=== PATIENT | female | born 1985 | race Caucasian/White ===

== ENCOUNTER → 2018-02-13 | Outpatient (CLI) | payer BC ==
[2018-02-13 11:49] LABS: HEMATOCRIT 44.9 % (36.0-47.0); HEMOGLOBIN 15.4 g/dl (12.0-15.5); MEAN CORPUSCULAR HEMOGLOBIN 30.7 pg (27.0-33.0); MEAN CORPUSCULAR HGB CONC 34.3 g/dl (32.0-36.5); MEAN CORPUSCULAR VOLUME 89.6 fl (80.0-96.0); PLATELET COUNT, AUTOMATED 394 10^3/uL (150-450); RED BLOOD COUNT 5.01 10^6/uL (4.00-5.40); RED CELL DISTRIBUTION WIDTH 12.3 % (11.5-14.5); WHITE BLOOD COUNT 12.9 10^3/uL (4.0-10.0)
[2018-02-13 12:07] LABS: ESTIMATED AVERAGE GLUCOSE 100 MG/DL (60-110); HEMOGLOBIN A1c 5.1 %
[2018-02-13 12:28] LABS: ALBUMIN 3.8 GM/DL (3.2-5.2); ALBUMIN/GLOBULIN RATIO 1.23 (1.00-1.93); ALKALINE PHOSPHATASE 78 U/L (45-117); ALT/SGPT 22 U/L (12-78); ANION GAP 7 MEQ/L (8-16); AST/SGOT 11 U/L (7-37); BILIRUBIN,TOTAL 0.5 MG/DL (0.2-1.0); BLOOD UREA NITROGEN 7 MG/DL (7-18); CALCIUM LEVEL 8.5 MG/DL (8.5-10.1); CARBON DIOXIDE LEVEL 26 MEQ/L (21-32); CHLORIDE LEVEL 109 MEQ/L (98-107); CHOLESTEROL LEVEL 202 MG/DL (<200); CHOLESTEROL RISK RATIO 5.941 (<5); CREATININE FOR GFR 0.68 MG/DL (0.55-1.30); GLOMERULAR FILTRATION RATE > 60.0 (>60); GLUCOSE, FASTING 84 MG/DL (70-100); HDL CHOLESTEROL 34 MG/DL (>40); IRON (FE) 60 UG/DL (50-170); NON-HDL-C 168 MG/DL; PERCENT SATURATION 19.3 % (13.2-45.0); SODIUM LEVEL 142 MEQ/L (136-145); THYROID STIMULATING HORMONE 0.716 uIU/ML (0.358-3.740); THYROXINE (T4) 9.6 UG/DL (4.5-12.0); TOTAL IRON BINDING CAPACITY 311 UG/DL (250-450); TOTAL PROTEIN 6.9 GM/DL (6.4-8.2); TRIGLYCERIDES LEVEL 260 MG/DL (<150)
[2018-02-13 12:47] LABS: TOTAL 25(OH) VITAMIN D 20.6 NG/ML (30.0-100.0)
[2018-02-13 12:48] LABS: TOTAL T3 137.3 NG/DL (60.0-181.0)
[2018-02-13 12:49] LABS: VITAMIN B12 LEVEL 447 PG/ML (247-911)
== END ==
LOC: M LAB 10:53
DX: J44.9 Chronic obstructive pulmonary disease, unspecified (principal); R53.83 Other fatigue; E03.9 Hypothyroidism, unspecified
CPT/HCPCS: 71046

== ENCOUNTER → 2018-02-13 | Outpatient (CLI) | payer BC | LOC: M RAD 11:08 | DX: S92.512A Displaced fracture of proximal phalanx of left lesser toe(s), initial encounter for closed fracture (principal); X58.XXXA Exposure to other specified factors, initial encounter; Y92.9 Unspecified place or not applicable | CPT/HCPCS: 73630 ==

== ENCOUNTER 2018-02-18 23:16 | Observation (INO) | payer BC ==
[2018-02-18] MEDS ORDERED: ONDANSETRON 4MG/2ML VIAL (J2405) IV (23:45)
[2018-02-18] MEDS ORDERED: MORPHINE 4 MG/ML 1ML VIAL/SYRINGE (J2270) IV (23:45)
[2018-02-18] MEDS ORDERED: ACETAMINOPHEN TAB 650MG DOSE (2X325MG) PO (23:45)
[2018-02-19] MEDS: metroNIDAZOLE 500 MG in APPROPRIATE DILUENT 1 EA IV ×3 (01:42→18:01)
[2018-02-19] MEDS: LR 1,000 ML IV ×3 (01:42→18:02)
[2018-02-19] MEDS: NORCO, ANEXSIA 5/325MG TABLET (HYDROcodone/ACETAMINOPHEN) PO ×2 (02:21→15:23)
[2018-02-19] MEDS: CIPROFLOXACIN 400 MG in APPROPRIATE DILUENT 1 EA IV ×2 (03:00→12:16)
[2018-02-19 05:31] LABS: HEMATOCRIT 40.8 % (36.0-47.0); HEMOGLOBIN 14.1 g/dl (12.0-15.5); MEAN CORPUSCULAR HEMOGLOBIN 30.7 pg (27.0-33.0); MEAN CORPUSCULAR HGB CONC 34.6 g/dl (32.0-36.5); MEAN CORPUSCULAR VOLUME 88.7 fl (80.0-96.0); PLATELET COUNT, AUTOMATED 312 10^3/uL (150-450); RED CELL DISTRIBUTION WIDTH 12.4 % (11.5-14.5); WHITE BLOOD COUNT 15.9 10^3/uL (4.0-10.0)
[2018-02-19 05:51] LABS: ANION GAP 5 MEQ/L (8-16); BLOOD UREA NITROGEN 6 MG/DL (7-18); CALCIUM LEVEL 8.4 MG/DL (8.5-10.1); CARBON DIOXIDE LEVEL 29 MEQ/L (21-32); CHLORIDE LEVEL 106 MEQ/L (98-107); CREATININE FOR GFR 0.77 MG/DL (0.55-1.30); GLOMERULAR FILTRATION RATE > 60.0 (>60); GLUCOSE, FASTING 98 MG/DL (70-100); SODIUM LEVEL 140 MEQ/L (136-145)
[2018-02-19] MEDS: HEPARIN SOD (PORCINE) 5000 UNITS/ML VIAL SC ×3 (05:52→21:22)
[2018-02-19 05:59] LABS: POTASSIUM SERUM 3.3 MEQ/L (3.5-5.1)
[2018-02-19] MEDS ORDERED: MIDAZOLAM INJ 2 MG/2 ML VIAL (J2250) As Ordered (06:41)
[2018-02-19] MEDS ORDERED: dexameTHASONE 4 MG/ML 1ML VIAL (J1100) As Ordered (06:41)
[2018-02-19] MEDS ORDERED: PROPOFOL 200 MG/20 ML VIAL As Ordered (06:41)
[2018-02-19] MEDS ORDERED: PHENYLephrine HCL 500 MCG/5 ML (100MCG/ML) SYRINGE (J2370) As Ordered (06:41)
[2018-02-19] MEDS ORDERED: ONDANSETRON 4MG/2ML VIAL (J2405) As Ordered (06:41)
[2018-02-19] MEDS ORDERED: LIDOCAINE 2% INJ 100 MG/5 ML SDV (FOR ANES.) As Ordered (06:41)
[2018-02-19] MEDS ORDERED: fentaNYL 100 MCG/2 ML INJECTION (J3010) As Ordered (06:41)
[2018-02-19] MEDS ORDERED: ROCURONIUM BROMIDE 50 MG/5 ML VIAL As Ordered (06:41)
[2018-02-19] MEDS ORDERED: GLYCOPYRROLATE INJ 0.2 MG/ML 2 ML VIAL As Ordered (06:57)
[2018-02-19] MEDS ORDERED: NEOSTIGMINE 10 MG/10 ML VIAL (J2710) As Ordered (06:57)
[2018-02-19] MEDS: BUPIVACAINE/EPIN 0.25% 30 ML VIAL As Ordered (06:59)
[2018-02-19] MEDS ORDERED: CYCLOBENZAPRINE 10 MG TAB PO (07:15)
[2018-02-19] MEDS: PERCOCET 5MG/325MG TAB PO (07:20)
[2018-02-19] MEDS ORDERED: PERCOCET 5MG/325MG TAB As Ordered (07:27)
[2018-02-19] MEDS ORDERED: ONDANSETRON 4MG/2ML VIAL (J2405) IV (07:45)
[2018-02-19] MEDS ORDERED: LR 1,000 ML IV (07:45)
[2018-02-19] MEDS ORDERED: MORPHINE 10 MG/ML 1ML VIAL (J2270) IV (07:45)
[2018-02-19] MEDS ORDERED: fentaNYL 100 MCG/2 ML INJECTION (J3010) IV (07:45)
[2018-02-19] MEDS: PANTOPRAZOLE 40MG TAB (PROTONIX) PO (08:49)
[2018-02-19] MEDS: PREGABALIN 50 MG CAP (LYRICA) PO ×2 (08:49→21:22)
[2018-02-19] MEDS: SENOKOT S TAB PO ×2 (08:49→21:21)
[2018-02-19] MEDS: NICOTINE 14 MG/24 HR TRANSDERMAL TD (08:50)
[2018-02-19] MEDS: KETOROLAC 30 MG/ML VIAL (J1885) IV ×2 (10:42→20:23)
[2018-02-19] MEDS: SUCRALFATE 1 GM TAB PO ×3 (11:10→21:21)
[2018-02-19] MEDS: ALBUTEROL 90 MCG/ACT 8GM HFA INHALER INH (16:55)
[2018-02-19] MEDS: ASCORBIC ACID 500 MG TAB PO (21:21)
[2018-02-19] MEDS: predniSONE 20 MG TAB PO (21:21)
[2018-02-19] MEDS: VITAMIN D 1,000 INTERNATIONAL UNITS TABLET PO (21:21)
[2018-02-19] MEDS: MULTIVITAMINS/MINERALS THERAP 1 TAB PO (21:21)
[2018-02-20] MEDS: CIPROFLOXACIN 400 MG in APPROPRIATE DILUENT 1 EA IV (01:49)
[2018-02-20] MEDS: NORCO, ANEXSIA 5/325MG TABLET (HYDROcodone/ACETAMINOPHEN) PO (02:06)
[2018-02-20] MEDS: metroNIDAZOLE 500 MG in APPROPRIATE DILUENT 1 EA IV (03:04)
[2018-02-20] MEDS: LR 1,000 ML IV (03:12)
[2018-02-20] MEDS: ALBUTEROL 90 MCG/ACT 8GM HFA INHALER INH (06:02)
[2018-02-20] MEDS: HEPARIN SOD (PORCINE) 5000 UNITS/ML VIAL SC (06:13)
[2018-02-20 07:37] LABS: HEMATOCRIT 37.2 % (36.0-47.0); HEMOGLOBIN 12.8 g/dl (12.0-15.5); MEAN CORPUSCULAR HGB CONC 34.4 g/dl (32.0-36.5); MEAN CORPUSCULAR VOLUME 90.1 fl (80.0-96.0); PLATELET COUNT, AUTOMATED 309 10^3/uL (150-450); RED BLOOD COUNT 4.13 10^6/uL (4.00-5.40); RED CELL DISTRIBUTION WIDTH 12.6 % (11.5-14.5); WHITE BLOOD COUNT 11.9 10^3/uL (4.0-10.0)
[2018-02-20 08:08] LABS: ANION GAP 5 MEQ/L (8-16); BLOOD UREA NITROGEN 8 MG/DL (7-18); CALCIUM LEVEL 8.4 MG/DL (8.5-10.1); CARBON DIOXIDE LEVEL 28 MEQ/L (21-32); CHLORIDE LEVEL 110 MEQ/L (98-107); CREATININE FOR GFR 0.57 MG/DL (0.55-1.30); GLOMERULAR FILTRATION RATE > 60.0 (>60); GLUCOSE, FASTING 123 MG/DL (70-100); POTASSIUM SERUM 3.8 MEQ/L (3.5-5.1); SODIUM LEVEL 143 MEQ/L (136-145)
[2018-02-20] MEDS: SENOKOT S TAB PO (09:13)
[2018-02-20] MEDS: SUCRALFATE 1 GM TAB PO (09:13)
[2018-02-20] MEDS: predniSONE 20 MG TAB PO (09:13)
[2018-02-20] MEDS: PREGABALIN 50 MG CAP (LYRICA) PO (09:14)
[2018-02-20] MEDS: PANTOPRAZOLE 40MG TAB (PROTONIX) PO (09:14)
[2018-02-20] MEDS: KETOROLAC 30 MG/ML VIAL (J1885) IV (09:20)
== END 2018-02-20 10:28 | disposition home or self-care (01) ==
LOC: M ED 23:16 → M ED INP 23:17 → M PED 02-19 01:11
DX: K35.89 Other acute appendicitis (principal); M79.7 Fibromyalgia; K21.9 Gastro-esophageal reflux disease without esophagitis; Q79.8 Other congenital malformations of musculoskeletal system; F17.210 Nicotine dependence, cigarettes, uncomplicated; Z79.899 Other long term (current) drug therapy; Z88.0 Allergy status to penicillin
CPT/HCPCS: 44970

== ENCOUNTER → 2018-02-18 | Outpatient (REF) | payer BC | LOC: M LAB REF 12:08 | DX: R05 Cough (principal); R50.9 Fever, unspecified | CPT/HCPCS: 87086 ==

== ENCOUNTER → 2018-02-23 | Outpatient (CLI) | payer BC | LOC: M EKG 09:52 | DX: R00.1 Bradycardia, unspecified (principal) | CPT/HCPCS: 93005 ==

== ENCOUNTER → 2018-10-17 | Outpatient (CLI) | payer OTHER ==
[~2018-10-17] MED LIST: CYCL10TA PO; DOXY100C PO; NORCOTAB PO; PRED20TA PO; PREG50CA PO; PROAAER10 INH; PROT1TAB2 PO; SUCR1TAB56 PO; ULTIMATE FLORA PO; VITA100066 PO; VITA500T PO; VITMTA PO; [UNRECOGNIZED DRUG - OTHER] PO
--- NOTE | 2018-10-21 10:36 | SLEEPCENT ---
DATE OF PROCEDURE: 10/17/2018 ORDERED BY: Sean Lala Nocturnal polysomnography was performed for the titration of pressure therapy in this patient with a clinical diagnosis of obstructive sleep apnea syndrome confirmed by home testing revealing a respiratory event index of 10.4. For testing, the patient was fit with a ResMed AirFit F20 full face mask of medium size and 4 cm of water pressure were applied to the circuit and the lights were extinguished. 8 hours and 6 minutes of data were reviewed. There were 446 minutes of sleep identified. Sleep latency was prolonged at 25.5 minutes. Rapid eye movement (REM) latency was short at 43.5 minutes. Sleep architecture was good with 5 REM cycles. Overall sleep efficiency was 93%. The electrocardiogram showed a sinus rhythm with an average heart rate of 58 beats per minute. Electroencephalogram (EEG) showed normal waveforms for awake and sleep with some coarsening in background. No focal events were identified. Respiratory events were best palliated with C-PAP at a pressure of +5. Some limb activity was seen late in the study, but arousals were only 2.4 per hour. IMPRESSION: Obstructive sleep apnea syndrome (G47.33) RECOMMENDATION: Nightly use of pressure therapy at 5 cm of water.
== END ==
LOC: M SLEEP 19:50
PROVIDERS: ATTEND Physician Assistant
DX: G47.33 Obstructive sleep apnea (adult) (pediatric) (principal)

== ENCOUNTER → 2018-11-03 | Outpatient (CLI) | payer OTHER ==
[~2018-11-03] MED LIST changes: +METHACHOLINE KIT (J7674) INH ONE
--- NOTE | 2018-11-03 15:15 | PFTRPT ---
Height: 68.00 Inches Weight: 210.00 Lbs BSA: 2.09 Diagnosis: R06.00 DATE OF PROCEDURE: 11/03/2018 ORDERED BY: Kasi Lala INTERPRETATION: Study of excellent technical quality. Under protocol, methacholine was administered. At a dose of 2.5 mg or 13.875 CDUs, a 28% decline in the FEV1 was noted. PC of 0.98 is significant. Flow rates did return to baseline post bronchodilator administration. IMPRESSION: Positive methacholine challenge study. MTDD
== END ==
LOC: M CARPUL 08:10
PROVIDERS: ATTEND Physician Assistant
DX: R06.00 Dyspnea, unspecified (principal)

== ENCOUNTER 2019-10-15 18:27 | Emergency (ER) | payer OTHER ==
[~2019-10-15] VITALS: Ht 172.7 cm; Wt 88.0 kg
[~2019-10-15 18:27] MED LIST changes: +HYDR-3715 PO; -METHACHOLINE KIT (J7674) INH ONE; -NORCOTAB PO
[2019-10-15] MEDS ORDERED: CIPR500T3 (19:31)
[2019-10-15] MEDS ORDERED: ACET1TAB16 (19:31)
[2019-10-15] MEDS ORDERED: VENL150C43 (19:31)
[2019-10-15] MEDS ORDERED: NS 1,000 ML IV ONE (21:00)
[2019-10-15] MEDS ORDERED: ONDANSETRON 4MG/2ML VIAL (J2405) IV ONE (21:00)
[2019-10-15] MEDS ORDERED: KETOROLAC 30 MG/ML VIAL (J1885) IV ONE (21:00)
[2019-10-15] MEDS ORDERED: methylPREDNISolone INJ 125 MG/2 ML VIAL (J2930) IV ONE (21:00)
--- NOTE | 2019-10-15 21:20 | REPVR ---
PROCEDURE INFORMATION: Exam: CT Head Without Contrast Exam date and time: 10/15/2019 8:58 PM Age: 34 years old Clinical indication: Pain; Headache; Additional info: Worst headache of life TECHNIQUE: Imaging protocol: Computed tomography of the head without contrast. Radiation optimization: All CT scans at this facility use at least one of these dose optimization techniques: automated exposure control; mA and/or kV adjustment per patient size (includes targeted exams where dose is matched to clinical indication); or iterative reconstruction. COMPARISON: No relevant prior studies available. FINDINGS: Brain: Normal. No hemorrhage. Unremarkable white matter. No mass effect. Ventricles: Normal. No ventriculomegaly. Bones/joints: Unremarkable. No acute fracture. Sinuses: Visualized sinuses are unremarkable. No fluid levels. Mastoid air cells: Visualized mastoid air cells are well aerated. Soft tissues: Unremarkable. IMPRESSION: No acute intracranial abnormality. Electronically signed by: Mando Baker On 10/15/2019 21:22:00 PM
[2019-10-15 22:00] LABS: BASO # 0.1 10^3/uL (0.0-0.2); BASO % 0.6 % (0.0-1.0); EOS # 0.3 10^3/uL (0.0-0.5); EOS % 3.3 % (0.0-3.0); HEMATOCRIT 49.1 % (36.0-47.0); HEMOGLOBIN 16.1 g/dl (12.0-15.5); LYMPH # 3.5 10^3/uL (1.5-5.0); MEAN CORPUSCULAR HEMOGLOBIN 29.8 pg (27.0-33.0); MEAN CORPUSCULAR HGB CONC 32.8 g/dl (32.0-36.5); MEAN CORPUSCULAR VOLUME 90.8 fl (80.0-96.0); MONO # 0.7 10^3/uL (0.0-0.8); NEUTROPHILS # 5.2 10^3/uL (1.5-8.5); NEUTROPHILS % 52.3 % (36.0-66.0); PLATELET COUNT, AUTOMATED 403 10^3/uL (150-450); RED BLOOD COUNT 5.41 10^6/uL (4.00-5.40); WHITE BLOOD COUNT 9.8 10^3/uL (4.0-10.0)
[2019-10-15 22:25] LABS: BLOOD UREA NITROGEN 6 MG/DL (7-18); CARBON DIOXIDE LEVEL 27 MEQ/L (21-32); CHLORIDE LEVEL 106 MEQ/L (98-107); CREATININE FOR GFR 0.58 MG/DL (0.55-1.30); GLOMERULAR FILTRATION RATE > 60.0 (>60); GLUCOSE, FASTING 75 MG/DL (70-100); POTASSIUM SERUM 4.7 MEQ/L (3.5-5.1); SODIUM LEVEL 142 MEQ/L (136-145)
[2019-10-15] MEDS ORDERED: MORPHINE 2 MG/ML 1ML VIAL (J2270) IV ONE (22:30)
[2019-10-16] MEDS ORDERED: ONDA4TAB6 PO (00:18)
[2019-10-16 00:45] VITALS: BP 110/69
== END 2019-10-16 00:30 | disposition home or self-care (01) ==
LOC: M ED 18:27
DX: R51 Headache (principal); F17.200 Nicotine dependence, unspecified, uncomplicated; Z79.51 Long term (current) use of inhaled steroids; Z79.899 Other long term (current) drug therapy; Z88.0 Allergy status to penicillin; Z91.018 Allergy to other foods; Z98.82 Breast implant status
CPT/HCPCS: 70450; 80048; 85025; 96361; 96374; 96375; 99284; J2270; J2405; J2930

== ENCOUNTER → 2020-06-07 | Outpatient (CLI) | payer OTHER ==
[~2020-06-07] MED LIST changes: +ACET1TAB16; +CIPR500T3; +CYCL-707 PO; -CYCL10TA PO; +ONDA4TAB6 PO; +VENL150C43; +VITA-243 PO; -VITA500T PO
[2020-06-07 09:47] LABS: HEMATOCRIT 45.9 % (36.0-47.0); MEAN CORPUSCULAR HEMOGLOBIN 31.1 pg (27.0-33.0); MEAN CORPUSCULAR HGB CONC 32.7 g/dl (32.0-36.5); MEAN CORPUSCULAR VOLUME 95.2 fl (80.0-96.0); PLATELET COUNT, AUTOMATED 402 10^3/uL (150-450); RED BLOOD COUNT 4.82 10^6/uL (4.00-5.40); WHITE BLOOD COUNT 9.1 10^3/uL (4.0-10.0)
[2020-06-07 10:15] LABS: ALBUMIN 3.6 GM/DL (3.2-5.2); ALT/SGPT 16 U/L (12-78); BILIRUBIN,TOTAL 0.5 MG/DL (0.2-1.0); BLOOD UREA NITROGEN 7 MG/DL (7-18); CALCIUM LEVEL 9.1 MG/DL (8.5-10.1); CARBON DIOXIDE LEVEL 30 MEQ/L (21-32); CHLORIDE LEVEL 106 MEQ/L (98-107); CHOLESTEROL LEVEL 186 MG/DL (<200); CHOLESTEROL RISK RATIO 3.509 (<5); CREATININE FOR GFR 0.58 MG/DL (0.55-1.30); GLOMERULAR FILTRATION RATE > 60.0 (>60); GLUCOSE, FASTING 79 MG/DL (70-100); HDL CHOLESTEROL 53 MG/DL (>40); LDL CHOLESTEROL 118 MG/DL (<100); NON-HDL-C 133 MG/DL; POTASSIUM SERUM 4.9 MEQ/L (3.5-5.1); SODIUM LEVEL 140 MEQ/L (136-145); TOTAL PROTEIN 6.5 GM/DL (6.4-8.2); TRIGLYCERIDES LEVEL 75 MG/DL (<150)
[2020-06-07 10:16] LABS: IRON (FE) 143 UG/DL (50-170); PERCENT SATURATION 57.2 % (13.2-45.0); THYROID STIMULATING HORMONE 0.647 uIU/ML (0.358-3.740); THYROXINE (T4) 8.4 UG/DL (4.5-12.0); TOTAL IRON BINDING CAPACITY 250 UG/DL (250-450)
[2020-06-07 10:17] LABS: TOTAL 25(OH) VITAMIN D 45.2 NG/ML (30.0-100.0); TOTAL T3 109.4 NG/DL (60.0-181.0)
[2020-06-07 10:45] LABS: HEMOGLOBIN A1c 4.8 %
== END ==
LOC: M WUC 08:02
PROVIDERS: ATTEND Family Medicine
DX: D64.9 Anemia, unspecified (principal); R53.83 Other fatigue; E03.9 Hypothyroidism, unspecified

== ENCOUNTER → 2020-08-09 | Outpatient (REF) | payer OTHER | LOC: M LAB REF 12:58 | PROVIDERS: ATTEND Family Medicine | DX: Z51.81 Encounter for therapeutic drug level monitoring (principal); Z79.899 Other long term (current) drug therapy ==

== ENCOUNTER → 2020-10-19 | Outpatient (CLI) | payer OTHER ==
--- NOTE | 2020-10-19 09:02 | REP ---
INDICATION: RT BREAST LUMP,IMPLANTS. Palpable lump in the right breast present times 5-7 days 1-3 o'clock position medial aspect right breast. COMPARISON: None. TECHNIQUE: Targeted right breast sonography. FINDINGS: Scanning in the region of the right medial breast 1 to 3 o'clock position demonstrates smooth of implant margins. Overlying breast tissue is mildly heterogeneous. No cyst, mass, or acoustic shadowing is seen. No abnormality is seen. IMPRESSION: BI-RADS category 2 benign findings. Recommend clinical follow-up. <Electronically signed by Jose Ramon Marshall > 10/19/20 [id number]
== END ==
LOC: M WHC 07:17
PROVIDERS: ATTEND Family Medicine
DX: N63.12 Unspecified lump in the right breast, upper inner quadrant (principal); Z98.82 Breast implant status

== ENCOUNTER → 2020-11-17 | Outpatient (CLI) | payer OTHER ==
--- NOTE | 2020-11-20 14:46 | SLEEPHOME ---
DIAGNOSTIC HOME SLEEP STUDY DATE: 11/17/2020 ORDERED BY: ELIAS Sandra Diagnostic home sleep testing was performed due to concern for the obstructive sleep apnea syndrome in this patient with a prior history of same, who has effective weight loss. For testing, a nocturnal T3 respiratory monitoring device was used. Continuous record was made of pulse, oxygen saturation, air flow, chest and abdominal strain, and body position. 9 hours and 59 minutes of data were reviewed. There were 7 hours and 34 minutes marked as time in bed. During the interval marked time in bed, there were 52 respiratory events identified of 10 seconds in duration or greater. The events were obstructive and not posturally related. Baseline pulse rate 64. Pulse rate range 32 to 100. Baseline saturation was 93%. Saturations fell to 56%. Testing was performed in both the supine and non-supine positions. IMPRESSION: Abnormal home sleep testing, with repetitive respiratory events and oxygen desaturations to 56% with a respiratory event index of 6.9, is consistent with persistence of obstructive sleep apnea syndrome. RECOMMENDATION: The patient should pursue further treatment for obstructive sleep apnea syndrome.
== END ==
LOC: M SLEEP HO 11:35
PROVIDERS: ATTEND Physician Assistant
DX: G47.33 Obstructive sleep apnea (adult) (pediatric) (principal)

== ENCOUNTER → 2020-11-24 | Outpatient (REF) | payer OTHER | LOC: M SFHCWAGY 10:22 | PROVIDERS: ATTEND Nurse Practitioner Family | DX: Z12.4 Encounter for screening for malignant neoplasm of cervix (principal); Z77.9 Other contact with and (suspected) exposures hazardous to health | CPT/HCPCS: 87624; G0123 ==

== ENCOUNTER → 2020-12-22 | Outpatient (CLI) | payer OTHER ==
[~2020-12-22] MED LIST changes: +PROHANCE 279.3MG/ML 15ML VIAL As Ordered ONE
--- NOTE | 2020-12-22 16:56 | REP ---
INDICATION: PAIN FROM BREAST IMPLANT, LUMP RT BREAST. COMPARISON: Ultrasound 10/19/2020. TECHNIQUE: Three Arlin MRI imaging was performed with a dedicated breast coil. Axial, coronal, and sagittal T1 and T2 weighted scans were obtained with and without fat saturation in the usual fashion. The study includes dynamically acquired post gadolinium-enhanced imaging with image subtraction. Maximum intensity projection and multi planar reformation imaging is included as well. This study is interpreted with the aid of AppiaD, an FDA approved computer aided detection (CAD) software program, on a dedicated breast MRI workstation. The gadolinium enhancement dose is 14 mL of intravenous ProHance. FINDINGS: Bilateral silicone implants are present. There is no evidence of intracapsular or extracapsular rupture. Mild reactive fluid surrounds the left breast implant. This is likely secondary to an inflammatory response. Within the breast tissue there is mild scattered fibroglandular tissue present. This is symmetrical. No significant cystic change is seen. There is no axillary adenopathy. There is very mild background parenchymal enhancement. There is no suspicious enhancing mass or morphologic abnormality. IMPRESSION: BI-RADS category 2 benign bilateral breast MRI. Bilateral silicone breast implants are intact with no evidence of intracapsular or extracapsular rupture. There is mild fluid surrounding the left breast implant likely inflammatory response to the implant. There is no suspicious enhancing mass or morphologic abnormality. <Electronically signed by Gregorio Hassan > 12/22/20 [id number]
== END ==
LOC: M RAD 12:28
PROVIDERS: ATTEND Nurse Practitioner Family
DX: N63.10 Unspecified lump in the right breast, unspecified quadrant (principal); T85.848A Pain due to other internal prosthetic devices, implants and grafts, initial encounter
CPT/HCPCS: A9576; C8908

== ENCOUNTER → 2021-01-09 | Outpatient (CLI) | payer OTHER ==
[~2021-01-09] MED LIST changes: -PROHANCE 279.3MG/ML 15ML VIAL As Ordered ONE
--- NOTE | 2021-01-09 15:08 | REP ---
INDICATION: Possible retro areolar 1.3 cm sized oval structure seen on an MRI. Patient has no complaints of a palpable breast abnormality or focal breast pain. COMPARISON: There are no prior mammograms for review. TECHNIQUE: Cc and MLO views of the left breast using both 2D and 3D modalities and both with Kerri and non Kerri views obtained. FINDINGS: The breast parenchyma is heterogenously dense to such a degree that the sensitivity of the mammogram a detecting cancers decreased. There are no masses. There is no internal architectural distortion. There are no suspicious calcifications. There is no skin thickening or nipple retraction. The Volpara volumetric breast density pattern is D . IMPRESSION: BIRADS/ACR category 2 negative mammogram. This patient's Tyrer-Cuzick lifetime breast cancer risk assessment score is 13.1%. This mammogram was interpreted with the aid of an FDA-approved computer-aided detection system. The patient states she had a clinical breast exam in . The patient letter being requested is M2 RECOMMENDATION: No further imaging is warranted. Ultrasonography could be performed if requested. <Electronically signed by Augusto Chauhan > 01/09/21 [id number]
--- NOTE | 2021-01-09 16:16 | REP ---
INDICATION: R22.1 LUMP IN NECK. COMPARISON: Palpable mass on the right, correlate with left side. Please do thyroid ultrasound.. TECHNIQUE: Scanning is performed in the area the palpable lump on the right side. In addition bilateral thyroid sonography is carried out. FINDINGS: The thyroid isthmus is 0.6 cm in thickness. A multinodular goiter is observed. Right lobe dimensions are 6.0 x 2.7 x 1.7 cm. Left lobe dimensions are 6.5 x 1.9 x 1.8 cm. There are multiple hypoechoic thyroid nodules bilaterally. There is a fairly homogeneous solid nodule in the right lobe measuring 2.0 x 1.3 x 1.6 cm. The right lobe also contains a slightly complex hyperechoic nodule 1.8 x 1.1 x 1.4 cm and a complex nodule 1.3 x 1.1 x 1.0 cm. In the left lobe, there are complex nodules. The largest on the left measures 2.7 x 1.3 x 2.2 cm. There is a 1.5 x 1.1 x 1.3 and 1.0 x 0.7 x 0.9 cm nodule. There is a partially cystic nodule in the isthmus measuring 1.0 x 0.5 x 0.9 cm. None of these appear more suspicious than any other. Comparison scanning bilaterally in the lateral aspect of the neck is performed. On the right in the area of palpable abnormality there are 2 cervical lymph nodes. These have preserved fatty hilar regions. They measure 0.7 x 0.5 x 0.5 cm and 1.3 x 1.0 x 0.6 cm. On the left there is a similar sized lymph node measuring 1.8 x 0.7 x 1.1 cm. The largest lymph node on each side appears slightly hypertrophied with cortical margin of 3 mm in the right cervical lymph noted 4 mm in the left. IMPRESSION: Nonspecific findings. Borderline lymph nodes noted in the anterior cervical chain bilaterally. There are multiple thyroid nodules. Consideration could be given to ultrasound-guided fine needle aspiration of the largest solid nodule in each lobe of the thyroid and the largest lymph node in each side of the neck.. <Electronically signed by Jose Ramon Marshall > 01/09/21 [id number]
== END ==
LOC: M WHC 13:30
PROVIDERS: ATTEND Surgery
DX: E04.1 Nontoxic single thyroid nodule (principal); R22.1 Localized swelling, mass and lump, neck; N63.42 Unspecified lump in left breast, subareolar
CPT/HCPCS: 76536; 77065; G0279

== ENCOUNTER → 2021-01-29 | Outpatient (CLI) | payer OTHER ==
--- NOTE | 2021-01-29 13:05 | REP ---
INDICATION: ABNORMAL BREAST MRI L BREAST. COMPARISON: Comparison MRI study is from December 22, 2020.. TECHNIQUE: Left breast sonography is performed for evaluation of implant margins, Liyah implant effusion, and MRI findings showing a cylindrical 3 cm structure at the anterior margin of the left implant. FINDINGS: Implant margins are fairly smooth. There is a small Liyah implant effusion surrounding the left breast implant corresponding with the MR study. For between 7-11 o'clock in the left breast along the margin of the augmentation implant, the fluid contains complex hypoechoic material showing independent motion. Anteriorly, in the retroareolar region, just superficial to the implant margin, there is a 3.1 x 0.7 x 0.9 cm Maribel coal echogenic structure without observable Doppler flow. This indents the superficial margin of the implant and corresponds to the MR findings. There is a small quantity of fluid surrounding this. This is of uncertain significance. Visualized breast parenchyma is unremarkable. No other finding. IMPRESSION: 1. There is a small Liyah implant effusion noted on the left. There is some echogenic debris or cellular material in a portion of the effusion medially showing independent motion on ultrasound. 2. There is a cylindrical 3.0 by 0.7 x 0.9 cm mass indenting the superficial margin of the left implant in the retroareolar region. This is surrounded by fluid and corresponds with the MR findings. This is of uncertain significance. No Doppler flow is seen within this lesion. Fat necrosis, postoperative granulation tissue versus other etiologies. 3. BI-RADS category is felt to be best assigned as category 4 suspicious findings. Consider ultrasound-guided Liyah implant effusion aspiration and ultrasound-guided needle biopsy of the cylindrical soft tissue structure. <Electronically signed by Jose Ramon Marshall > 01/29/21 [id number]
== END ==
LOC: M WHC 08:28
PROVIDERS: ATTEND Surgery
DX: R92.8 Other abnormal and inconclusive findings on diagnostic imaging of breast (principal); N63.20 Unspecified lump in the left breast, unspecified quadrant

== ENCOUNTER → 2021-02-08 | Outpatient (CLI) | payer OTHER ==
[~2021-02-08] MED LIST changes: +TRAM50TA2 PO; +XANA0.25 PO
[2021-02-08 14:47] VITALS: BP 112/80
--- NOTE | 2021-02-09 07:49 | REP ---
INDICATION: ABN LEFT BREAST MRI/US GUIDED BX/L ASPIRATION. COMPARISON: None. TECHNIQUE: The procedure was performed under the direct supervision of Dr. Marshall. Patient has a history of a small Liyah-implant effusion with echogenic debris or cellular material in a portion of the effusion medially showing independent motion are ultrasound. There is a cylindrical 3 x 0.7 x 0.9 cm mass indenting superficial margin of the left implant in the retro-areolar region. These were seen on a previous ultrasound dated 01/29/2021. The risks and benefits of the procedure were explained to the patient and informed consent was obtained. The implant effusion and mass were localized using ultrasound guidance. The skin was prepped and draped in a sterile fashion. The effusion in the medial portion of the breast was addressed 1st. 1% lidocaine was used as a local anesthetic. Using ultrasound guidance an 18 gauge needle was inserted and advanced into the effusion. However, only a few drops of yellowish colored fluid was able to be withdrawn. The retro-areolar mass was then addressed. The left breast mass was localized using ultrasound guidance. The skin was prepped and draped in a sterile fashion. 1% Xylocaine was used as a local anesthetic. Using ultrasound guidance a 17/18 gauge coaxial needle was inserted and6 core biopsy samples were obtained. The patient tolerated the procedure well and there were no immediate complications. After the appropriate amount of monitored convalescence, the patient was discharged from the department. FINDINGS: As above. IMPRESSION: Ultrasound-guided left breast biopsy. <Electronically signed by Stanislaw Meza > 02/08/21 [id number] <Electronically signed by Jose Ramon Marshall > 02/09/21 [id number]
== END ==
LOC: M WHCPRO 06:38
PROVIDERS: ATTEND Surgery
DX: D24.2 Benign neoplasm of left breast (principal)

== ENCOUNTER → 2021-02-28 | Outpatient (CLI) | payer OTHER ==
[~2021-02-28] MED LIST changes: +ISOVUE-370 76% 100ML VIAL As Ordered ONE
--- NOTE | 2021-03-01 08:44 | REPVR ---
PROCEDURE INFORMATION: Exam: CT Neck With Contrast Exam date and time: 02/28/2021 6:03 PM Age: 35 years old Clinical indication: Other: RT neck lymphnode, R/O cervical lymphadenopathy TECHNIQUE: Imaging protocol: Computed tomography images of the neck with contrast. Radiation optimization: All CT scans at this facility use at least one of these dose optimization techniques: automated exposure control; mA and/or kV adjustment per patient size (includes targeted exams where dose is matched to clinical indication); or iterative reconstruction. Contrast material: ISOVUE 370; Contrast volume: 75 ml; Contrast route: INTRAVENOUS (IV); COMPARISON: SOFT TISSUE H/N THYROID US 01/09/2021 3:00 PM FINDINGS: Nasopharynx: Unremarkable. Oropharynx: Unremarkable. No significant tonsillar enlargement. Hypopharynx: Unremarkable. Larynx: Unremarkable. Normal epiglottis. Retropharyngeal space: Unremarkable. Submandibular/Parotid glands: Normal. Glands are normal in size. Thyroid: The thyroid gland is diffusely lobulated and nodular. Dominant right thyroid lobe nodule measures up to 1.7 cm in diameter. There is a 1.8 cm isthmus nodule. This has been previously evaluated sonographically. Lymph nodes: There are small multilevel cervical lymph nodes. The site of palpable abnormality appears to correlate with an 8 mm right level 2 lymph node. There is no worrisome lymphadenopathy. Trachea: Visualized trachea is unremarkable. Lungs: Unremarkable as visualized. Bones/joints: Unremarkable. No acute fracture. Soft tissues: Unremarkable. No significant soft tissue swelling. IMPRESSION: No worrisome cervical lymphadenopathy. COMMENTS: Consistent with the [employer]'s Incidental Findings Committee white paper (J Am Luke Radiol 2015): In patients aged 35 years and older with an incidental thyroid nodule equal to or greater than 1.[address], MRI or extrathyroidal US, further evaluation with dedicated thyroid US is recommended for patients with normal life expectancy and without comorbidities. For smaller nodules without suspicious features, no further evaluation or follow up is recommended. Electronically signed by: Ronna Godoy On 03/01/2021 08:44:10 AM
== END ==
LOC: M RAD 17:47
PROVIDERS: ATTEND Otolaryngology
DX: E04.2 Nontoxic multinodular goiter (principal)
CPT/HCPCS: 70491; Q9967

== ENCOUNTER → 2021-03-05 | Outpatient (CLI) | payer OTHER ==
[~2021-03-05] MED LIST changes: -ISOVUE-370 76% 100ML VIAL As Ordered ONE
--- NOTE | 2021-03-14 08:41 | SLEEPCENT ---
DATE: 03/05/2021 ORDERED BY: ELIAS Sandra Nocturnal polysomnography was performed for the titration of pressure therapy in this patient with a clinical diagnosis of obstructive sleep apnea syndrome confirmed by home testing revealing a respiratory event index of 6.9. For testing a ResMed AirTouch F20 full face mask of medium size was used, 4 cm of water pressure were applied to the circuit, and the lights were extinguished. 8 hours and 48 minutes of data were reviewed. There were 429.5 minutes of sleep identified. Sleep latency was prolonged at 19 minutes. REM latency was prolonged at 421 minutes. Sleep architecture initially fragmented improved later in the test on optimal pressure therapy and there was evidence of a prolonged REM cycle late in the study. Overall sleep efficiency was 82.2%. The electrocardiogram showed a sinus rhythm with small complexes with average heart rate of 50 beats per minute. EEG showed normal waveforms for wake and sleep. Respiratory events were fully palliated with CPAP at a pressure of +5 and remaining measures of sleep physiology were normal. IMPRESSION: Obstructive sleep apnea syndrome (G47.33). RECOMMENDATION: Nightly use of pressure therapy 5 cm of water.
== END ==
LOC: M SLEEP 20:00
PROVIDERS: ATTEND Physician Assistant
DX: G47.33 Obstructive sleep apnea (adult) (pediatric) (principal)

== ENCOUNTER → 2021-03-09 | Outpatient (CLI) | payer OTHER ==
[~2021-03-09] MED LIST changes: +E-Z-GAS II EFFERVESCENT PACKET (SODIUM BICARB./CITRIC ACID/SIMETHICONE) As Ordered ONE; +E-Z-HD 98% w/w 340GM SUSP BTL As Ordered ONE; +E-Z-PAQUE 96% w/w SUSP 176GM BTL As Ordered ONE
--- NOTE | 2021-03-09 14:50 | REP ---
INDICATION: DYSPHAGIA. COMPARISON: None TECHNIQUE: This procedure was performed by Josselyn Olea [facility], under the direct supervision of Dr. Hassan. Images were reviewed with Dr. Hassan prior to dictation. Liquid barium and gas producing crystals were given in the erect position, as well as liquid barium in the prone oblique position in order to perform a double contrast esophagram examination. FINDINGS: A single view PA chest x-ray is submitted as a assessment analyst film. The superior mediastinal structures are midline. The heart size is within normal limits. The lungs are clear. The oral and pharyngeal stages of deglutition were unremarkable. Esophageal transport is prompt and efficient and there is no evidence of esophagitis, stricture, or mucosal ring. There is evidence of a small hiatal hernia. There was no gastroesophageal reflux noted . IMPRESSION: Small hiatal hernia, otherwise unremarkable esophagram. 0.3 minutes of fluoroscopy time was utilized for this procedure. Some fluoroscopic images are performed with last image hold technology. These images require no additional radiation. <Electronically signed by Josselyn Olea > 03/09/21 1401 <Electronically signed by Gregorio Hassan > 03/09/21 1440
== END ==
LOC: M RAD 08:14
PROVIDERS: ATTEND Otolaryngology
DX: R13.10 Dysphagia, unspecified (principal); E04.2 Nontoxic multinodular goiter; K44.9 Diaphragmatic hernia without obstruction or gangrene

== ENCOUNTER → 2021-04-23 | Outpatient (CLI) | payer OTHER ==
[~2021-04-23] MED LIST changes: -DOXY100C PO; +DOXY100C3 PO; -E-Z-GAS II EFFERVESCENT PACKET (SODIUM BICARB./CITRIC ACID/SIMETHICONE) As Ordered ONE; -E-Z-HD 98% w/w 340GM SUSP BTL As Ordered ONE; -E-Z-PAQUE 96% w/w SUSP 176GM BTL As Ordered ONE; +LIDOCAINE 1% MDV 20ML VIAL As Ordered ONE; +SODIUM BICARBONATE 8.4% INJ 50MEQ 50 ML VIAL As Ordered ONE
--- NOTE | 2021-04-23 18:03 | REP ---
INDICATION: LIYAH THYROID NODULE. COMPARISON: None. TECHNIQUE: The procedure was performed by Josselyn Olea [facility], under the direct supervision of Dr. Marshall. The risks and benefits of the procedure were explained to the patient and an informed consent was obtained both verbally and written. Directly prior to the start of the procedure a formal time-out was completed in the procedure room. FINDINGS: Using ultrasound guidance the enlarged right lymph node adjacent to the thyroid, the right thyroid nodule, the left thyroid nodule, and the enlarged left lymph node adjacent to the thyroid gland was localized. Due to the location of the lymph node's it was determined that a fine needle aspiration would be the safest approach. The skin was prepped and draped in a sterile fashion. A total of 10 mL of buffered lidocaine was used as a local anesthetic. Using ultrasound guidance a 8 fine needle aspirations were obtained of the right lymph node using 25 gauge needles. Four specimens were sent to our lab here, and remaining 4 were sent out in RPMI solution, for further testing. Using ultrasound guidance a 4 fine needle aspirations were than obtained of the right thyroid nodule using 25 gauge needles. The left thyroid nodule was then localized and 4 fine needle aspirations were obtained using 25 gauge needles. The left lymph node was localized and 8 fine needle aspirations were obtained under ultrasound guidance. Four specimens were placed in RPMI solution and sent out for further testing. Unfortunately the formalin containing the 4 remaining specimens was dropped on the floor. Another 3 fine needle aspirations were obtained of the left lymph node and sent to the lab for further analysis. The right cervical lymph node that the patient usually palpates was not visualized under ultrasound, and the patient could not palpated on today's exam. Therefore the right cervical lymph node was not biopsied. The patient tolerated the procedure well and there were no immediate complications. After the appropriate amount of monitored convalescence the patient was discharged from the department. IMPRESSION: 1. Ultrasound-guided bilateral thyroid nodule and bilateral lymph node fine needle aspirations. <Electronically signed by Josselyn Olea > 04/23/21 1726 <Electronically signed by Jose Ramon Marshall > 04/23/21 1800
== END ==
LOC: M IRPRO 13:49
PROVIDERS: ATTEND Otolaryngology
DX: D34 Benign neoplasm of thyroid gland (principal); E04.2 Nontoxic multinodular goiter

== ENCOUNTER → 2021-04-24 | Outpatient (REF) | payer OTHER ==
[~2021-04-24] MED LIST changes: -LIDOCAINE 1% MDV 20ML VIAL As Ordered ONE; -SODIUM BICARBONATE 8.4% INJ 50MEQ 50 ML VIAL As Ordered ONE
[2021-04-25 12:43] LABS: FREE T4 0.94 NG/DL (0.76-1.46); THYROID STIMULATING HORMONE 0.544 uIU/ML (0.358-3.740)
[2021-04-25 13:11] LABS: HEPATITIS C VIRUS ABY INDEX 0.1 INDEX (<0.8); HIV 1&2 SCREEN CENTAUR NEGATIVE (NEGATIVE)
[2021-04-25 15:42] LABS: HEMOGLOBIN A1c 4.8 %
== END ==
LOC: M SFHCCLAY 14:51
PROVIDERS: ATTEND Family Medicine
DX: E04.1 Nontoxic single thyroid nodule (principal); Z83.3 Family history of diabetes mellitus; Z13.1 Encounter for screening for diabetes mellitus; Z11.4 Encounter for screening for human immunodeficiency virus [HIV]; Z11.59 Encounter for screening for other viral diseases

== ENCOUNTER 2021-05-15 10:24 | Inpatient (IN) | payer OTHER ==
[~2021-05-15] VITALS: Ht 172.7 cm; Wt 71.4 kg
[~2021-05-15 10:24] MED LIST changes: -VENL150C43; +VENL150C43 PO
[2021-05-15] MEDS ORDERED: CLINDAMYCIN 600 MG in IV 1 EA IV ONE (13:20)
[2021-05-15] MEDS ORDERED: PERCOCET 5MG/325MG TAB PO ONE (13:20)
[2021-05-15] MEDS ORDERED: ONDANSETRON 4MG/2ML VIAL IV ONE (13:20)
[2021-05-15] MEDS ORDERED: NS 1,000 ML IV ONE (13:35)
[2021-05-15 13:47] LABS: BASO # 0.1 10^3/uL (0.0-0.2); BASO % 0.5 % (0.0-1.0); EOS # 0.1 10^3/uL (0.0-0.5); EOS % 0.8 % (0.0-3.0); HEMATOCRIT 48.8 % (36.0-47.0); HEMOGLOBIN 16.3 g/dl (12.0-15.5); LYMPH # 1.9 10^3/uL (1.5-5.0); LYMPH % 12.8 % (24.0-44.0); MEAN CORPUSCULAR HEMOGLOBIN 30.9 pg (27.0-33.0); MEAN CORPUSCULAR HGB CONC 33.4 g/dl (32.0-36.5); MEAN CORPUSCULAR VOLUME 92.6 fl (80.0-96.0); MONO # 0.9 10^3/uL (0.0-0.8); MONO % 5.9 % (2.0-8.0); NEUTROPHILS # 11.8 10^3/uL (1.5-8.5); NEUTROPHILS % 79.7 % (36.0-66.0); PLATELET COUNT, AUTOMATED 380 10^3/uL (150-450); RED BLOOD COUNT 5.27 10^6/uL (4.00-5.40); WHITE BLOOD COUNT 14.9 10^3/uL (4.0-10.0)
[2021-05-15 14:18] LABS: ALBUMIN 4.3 GM/DL (3.2-5.2); BILIRUBIN,DIRECT 0.2 MG/DL (0.0-0.2); BILIRUBIN,TOTAL 0.7 MG/DL (0.2-1.0); TOTAL PROTEIN 7.5 GM/DL (6.4-8.2)
[2021-05-15] MEDS ORDERED: ISOVUE-370 76% 100ML VIAL As Ordered ONE (14:20)
--- NOTE | 2021-05-15 14:48 | REPVR ---
PROCEDURE INFORMATION: Exam: CT Maxillofacial With Contrast Exam date and time: 05/15/2021 2:29 PM Age: 35 years old Clinical indication: Mass, lump, or swelling; Other: Maxillary siuns swelling; Jaw pain; Additional info: Infection jaw / swelling maxillary siuns TECHNIQUE: Imaging protocol: Computed tomography images of the face with intravenous contrast. Radiation optimization: All CT scans at this facility use at least one of these dose optimization techniques: automated exposure control; mA and/or kV adjustment per patient size (includes targeted exams where dose is matched to clinical indication); or iterative reconstruction. Contrast material: ISOVUE 370; Contrast volume: 75 ml; Contrast route: INTRAVENOUS (IV); COMPARISON: None FINDINGS: Orbital cavity: Unremarkable appearance of the globes, optic nerves, and extraocular muscles. Bones/joints: No acute osseous pathology in the visualized facial bones. Additional findings as described above. Paranasal sinuses: Localized mucoperiosteal disease in the left maxillary sinus. Soft tissues: Prominent infiltration of subcutaneous fat in the left malar, maxillary, infraorbital, and nasal regions, consistent with cellulitis in the appropriate clinical setting. No discrete well-formed abscess is identified at this time. Submandibular/Parotid glands: Normal symmetric configuration of the submandibular and parotid glands. Lymph nodes: Subcentimeter lymph nodes. Brain: Midline nasal septum. Left phillip bullosa. Dental: Beam hardening artifact is identified in association with dental amalgam. Thyroid: Absence of the left thyroid lobe. IMPRESSION: 1. Prominent infiltration of subcutaneous fat in the left malar, maxillary, infraorbital, and nasal regions, consistent with cellulitis in the appropriate clinical setting. 2. Localized mucoperiosteal disease in the left maxillary sinus. Electronically signed by: Chau Douglas On 05/15/2021 14:47:42 PM
[2021-05-15] MEDS ORDERED: MORPHINE 4 MG/ML 1ML VIAL/SYRINGE (J2270) IV ONE (15:45)
[2021-05-15] MEDS ORDERED: METOCLOPRAMIDE INJ 10MG/2ML VIAL (J2765 PER 1) IV ONE (15:50)
[2021-05-15] MEDS ORDERED: PROBCAP14 PO (17:41)
[2021-05-15] MEDS ORDERED: [UNRECOGNIZED DRUG - OTHER] PO (17:41)
[2021-05-15] MEDS ORDERED: ALPR0.5T3 PO (17:41)
[2021-05-15] MEDS ORDERED: CLEO300C2 PO (17:41)
[2021-05-15] MEDS ORDERED: NICO14DI24 TD (17:41)
[2021-05-15] MEDS ORDERED: ARNU1INH3 PO (17:41)
[2021-05-15] MEDS ORDERED: VANCOMYCIN HCL 750 MG in IV FLUID PLACE HOLDER 1 EA IV SCH (17:45)
[2021-05-15] MEDS ORDERED: MORPHINE 2 MG/ML 1ML VIAL (J2270) IV PRN (17:45)
[2021-05-15] MEDS ORDERED: HOME MED LIST COMPLETE! XX SCH (17:45)
--- NOTE | 2021-05-15 17:48 | HPEPDOC ---
[facility] Medical History & Physical Date of Admission May 15, 2021 Date of Service: May 15, 2021 History and Physical CHIEF COMPLAINT: Lft face hurts HISTORY OF PRESENT ILLNESS: 35-year-old female with a past medical history of GERD, fibromyalgia, Mendez syndrome, and anxiety/depression presented to the emergency department with complaints of left facial swelling. She reports she began to have a tingling sensation few weeks ago in her left malar tooth. However, since there is no obvious lesions are appreciated nothing was made much of it. However, 2-3 days ago the pain had gotten worse. She also noted swelling today. She was evaluated by her dentist yesterday who prescribed clindamycin. However, she was not able to tolerate oral medications due to her associated nausea and vomiting. At this junction, she had received antiemetics which helped with her symptoms as well as pain medications. 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 Denies alcohol and recreational drug use FAMILY HISTORY: Noncontributory ALLERGIES: Please see below. REVIEW OF SYSTEMS: 10 point review of system was negative except for what is noted in the HPI HOME MEDICATIONS: Please see below. PHYSICAL EXAMINATION: General: Lying in bed, no acute distress Head/Neck/Throat: Trachea midline, mucous membranes moist Eyes: Sclera anicteric, PERRLA Thorax: Normal respiratory effort on room air, lungs clear to auscultation bilaterally, no wheezes/rales/rhonchi Cardiovascular: Normal rate, regular rhythm, normal S1, S2; no S3, S4, rubs/gallops/murmurs Abdomen: Bowel sounds present, soft/nontender/nondistended Genitourinary: No CVA tenderness, no Smith in place Musculoskeletal: Moving all extremities, no edema Skin: Left maxillary facial swelling appreciated and just below the orbit. There was no obvious drainage appreciated from within the wound cavity. There is also rt lower extremity erythema changes superior to knee. Neurologic: AAOx3, speech fluent and goal-directed, no focal deficits, grossly intact LABORATORY DATA: See below. IMAGING: MICROBIOLOGY: Please see below. ASSESSMENT/PLAN #Cellulitis -Unable to tolerate ambulatory p.o. medications due to nausea and vomiting. Will start broad-spectrum antibiotics as the swelling has worsened while she was in the emergency department. No obvious fluid collection was appreciated on CT scan. She reports penicillin allergies (angioedema when she was a child). Thus, we will start ceftriaxone and Flagyl for gram-negative as well as anaerobic coverage. Considering that the infection had gotten worse will also add MRSA coverage. If MRSA screen is negative this can be discontinued. -there is also rle cellulitis just above the knee, which should be covered with above regimen. #Anxiety/depression -Continue with ambulatory anxiety lytics. #GERD -Continue ambulatory ppi #DVT ppx -Continue with heparin subcu Vital Signs Vital Signs Date Time Temp Pulse Resp B/P (MAP) Pulse Ox O2 Delivery O2 Flow Rate FiO2 05/15/21 16:02 20 05/15/21 15:53 99.1 83 126/62 (83) 99 Room Air Laboratory Data Labs 24H Laboratory Tests 2 05/15/21 13:31: Immature Granulocyte % (Auto) 0.3, Neutrophils (%) (Auto) 79.7H, Lymphocytes (%) (Auto) 12.8L, Monocytes (%) (Auto) 5.9, Eosinophils (%) (Auto) 0.8, Basophils (%) (Auto) 0.5, Neutrophils # (Auto) 11.8H, Lymphocytes # (Auto) 1.9, Monocytes # (Auto) 0.9H, Eosinophils # (Auto) 0.1, Basophils # (Auto) 0.1, Nucleated Red Blood Cells % (auto) 0.0, Total Bilirubin 0.7, Direct Bilirubin 0.2, Aspartate Amino Transf (AST/SGOT) 10, Alanine Aminotransferase (ALT/SGPT) 20, Alkaline Phosphatase 68, Total Protein 7.5, Albumin 4.3, Albumin/Globulin Ratio 1.3, Lipase 84 05/15/21 13:44: POC Beta HCG, Quantitative < 5.0 05/15/21 14:00: POC Glucose (Misc Panel) 92, POC Sodium (Misc Panel) 142, POC Potassium (Misc Panel) 3.8, POC Chloride (Misc Panel) 99, POC Total CO2 (Misc Panel) 27.0, POC Blood Urea Nitrogen (Misc Panel 5L, POC Ionized Calcium (Misc Panel) 4.6, POC Creatinine (Misc Panel) 0.6, POC Hematocrit (Misc Panel) 51.0 05/15/21 14:48: Erythrocyte Sedimentation Rate 3, Lactic Acid Level 1.1, C-Reactive Protein, Quantitative 0.70H CBC/BMP Laboratory Tests 05/15/21 13:31 Microbiology Microbiology 05/15/21 Blood Culture, Received Pending 05/15/21 Blood Culture, Received Pending Home Medications Scheduled Clindamycin Hcl (Cleocin HCl) 300 Mg Capsule, 300 MG PO QID FOR 10 DAYS, STARTED 05/14 Fluticasone Furoate (Arnuity Ellipta) 200 Mcg Blst.w.dev, 1 PUFF PO DAILY Lactobacillus Acidophilus (Probiotic) 1 Each Capsule, 1 CAP PO QPM Multivitamins (Thera M Plus Tablet) 1 Tab Tab, 1 TAB PO QPM TAKES AT DINNERTIME Nicotine (Nicotine Patch) 14 Mg Patch.td24, 14 MG TD DAILY Pantoprazole Sodium (Protonix) 40 Mg Tab, 40 MG PO QPM Venlafaxine HCl (Venlafaxine HCl ER) 150 Mg Cap.er.24h, 150 MG PO DAILY [Viviscal Hair Vit] , 1 TAB PO BID Scheduled PRN Alprazolam (Alprazolam) 0.5 Mg Tablet, 0.5 MG PO BID PRN for ANXIETY Tramadol HCl (Tramadol HCl) 50 Mg Tablet, 1 TAB PO BID PRN for PAIN LEVEL 1-5 Allergies Coded Allergies: Aida Nut (Verified Allergy, Intermediate, ITCHY THROAT, 02/08/21) Penicillins (Verified Allergy, Unknown, swelling, 02/08/21) latex (Verified Allergy, Unknown, swelling, 02/08/21) pineapple (Verified Adverse Reaction, Unknown, upset stomach, 02/08/21) A-FIB/CHADSVASC A-FIB History Current/History of A-Fib/PAF?: No RAYRAY FRIEDMAN M.D. May 15, 2021 17:41
[2021-05-15 18:36] LABS: RSV AMPLIFICATION NEGATIVE (NEGATIVE)
[2021-05-15] MEDS: MORPHINE 4 MG/ML 1ML VIAL/SYRINGE (J2270) IV PRN (19:34)
[2021-05-15 19:58] LABS: MRSA PCR SCREEN NOT DETECTED (NEGATIVE)
[2021-05-15] MEDS ORDERED: ALPRAZolam 0.5 MG TAB PO PRN (20:05)
[2021-05-15 20:32] VITALS: BP 133/75
[2021-05-15] MEDS: cefTRIAXone SOD 1 GM in D5W MINI-BAG PLUS 50 ML IV SCH (21:00)
[2021-05-15] MEDS: metroNIDAZOLE 500 MG in IV 1 EA IV SCH (21:46)
[2021-05-15 22:00] VITALS: BP 133/75
[2021-05-15] MEDS ORDERED: VANCOMYCIN HCL 750 MG, VIAL MATE ADAPTER 1 EACH in NS 250 ML IV ONE (23:00)
[2021-05-16] MEDS ORDERED: VANCOMYCIN HCL 750 MG, VIAL MATE ADAPTER 1 EACH in NS 250 ML IV ONE ×3
[2021-05-16] MEDS: metroNIDAZOLE 500 MG in IV 1 EA IV SCH ×3 (05:33→21:57)
[2021-05-16 06:00] VITALS: BP 111/64
[2021-05-16] MEDS: ONDANSETRON 4 MG TAB PO PRN (06:10)
[2021-05-16 06:44] LABS: BLOOD UREA NITROGEN 5 MG/DL (7-18); CALCIUM LEVEL 8.7 MG/DL (8.5-10.1); CARBON DIOXIDE LEVEL 29 MEQ/L (21-32); CHLORIDE LEVEL 107 MEQ/L (98-107); CREATININE FOR GFR 0.61 MG/DL (0.55-1.30); GLOMERULAR FILTRATION RATE > 60.0 (>60); GLUCOSE, FASTING 86 MG/DL (70-100); MAGNESIUM LEVEL 1.9 MG/DL (1.8-2.4); PHOSPHORUS LEVEL 3.4 MG/DL (2.5-4.9); POTASSIUM SERUM 4.1 MEQ/L (3.5-5.1); SODIUM LEVEL 140 MEQ/L (136-145)
[2021-05-16 08:28] LABS: BLOOD UREA NITROGEN 6 MG/DL (7-18); CALCIUM LEVEL 8.9 MG/DL (8.5-10.1); CARBON DIOXIDE LEVEL 28 MEQ/L (21-32); CHLORIDE LEVEL 105 MEQ/L (98-107); GLOMERULAR FILTRATION RATE > 60.0 (>60); GLUCOSE, FASTING 95 MG/DL (70-100); MAGNESIUM LEVEL 2.1 MG/DL (1.8-2.4); PHOSPHORUS LEVEL 3.5 MG/DL (2.5-4.9); POTASSIUM SERUM 3.8 MEQ/L (3.5-5.1); SODIUM LEVEL 138 MEQ/L (136-145)
[2021-05-16] MEDS: VANCOMYCIN HCL 1,000 MG, VIAL MATE ADAPTER 1 EACH in NS 250 ML IV SCH ×2 (08:57→16:34)
[2021-05-16] MEDS: VENLAFAXINE **XR** 75MG CAPSULE PO SCH (08:57)
[2021-05-16] MEDS: ENOXAPARIN 40MG/0.4ML SYRINGE (J1650 PER 10MG) SC SCH (08:58)
[2021-05-16] MEDS: NICOTINE 14 MG/24 HR TRANSDERMAL TD SCH (08:58)
[2021-05-16] MEDS: MORPHINE 4 MG/ML 1ML VIAL/SYRINGE (J2270) IV PRN (11:38)
[2021-05-16] MEDS: ACETAMINOPHEN TAB 650MG DOSE (2X325MG) PO PRN ×2 (13:36→22:21)
[2021-05-16 14:00] VITALS: BP 117/69
[2021-05-16] MEDS: PANTOPRAZOLE 40MG TAB (PROTONIX) PO SCH (17:46)
--- NOTE | 2021-05-16 18:20 | IPNPDOC ---
Subjective Date Seen The patient was seen on 05/16/21. Subjective Chief Complaint/HPI Patient was seen and examined at bedside this morning. She was asking when she would be able to go home. She is concerned about following up with her dentist. She was explained that she still needed IV antibiotics for her face cellulitis. Otherwise, she had no new complaints and felt that the swelling had decreased. Other systems 10 point review of system was negative except for what is noted in the HPI Objective Physical Examination Other physical findings General: Lying in bed, no acute distress Head/Neck/Throat: Trachea midline, mucous membranes moist Eyes: Sclera anicteric, PERRLA Thorax: Normal respiratory effort on room air, lungs clear to auscultation bilat erally, no wheezes/rales/rhonchi Cardiovascular: Normal rate, regular rhythm, normal S1, S2; no S3, S4, rubs/gallops/murmurs Abdomen: Bowel sounds present, soft/nontender/nondistended Genitourinary: No CVA tenderness, no Smith in place Musculoskeletal: Moving all extremities, no edema Skin: Left maxillary facial swelling appreciated and just below the orbit, decreased from 05/15. There was no obvious drainage appreciated from within the oral cavity. There is a missing tooth on the left mandibular region with some black discoloration in the gum, the maxillary tooth that she describes as hurtin g, there is no edema or discharge around it. There is also rt lower extremity erythema changes superior to knee Neurologic: AAOx3, speech fluent and goal-directed, no focal deficits, grossly intact Assessment /Plan Assessment #Cellulitis -Continue with ceftriaxone and Flagyl for gram-negative and anaerobic coverage. Vancomycin can be discontinued as MRSA screen was negative. -there is also rle cellulitis just above the knee, which should be covered with above regimen. -We will ask for assistance of infectious disease team. #Anxiety/depression -Continue with ambulatory anxiety lytics. #GERD -Continue ambulatory ppi #DVT ppx -Continue with heparin subcu Plan/VTE VTE Prophylaxis Ordered?: Yes VS, I&O, 24H, Fishbone Vital Signs/I&O Vital Signs Date Time Temp Pulse Resp B/P (MAP) Pulse Ox O2 Delivery O2 Flow Rate FiO2 05/16/21 05:51 18 Room Air 05/15/21 22:00 99.6 60 133/75 (94) 98 I&O- Last 24 Hours up to 6 AM 05/16/21 06:00 Intake Total 2050 ml Balance 2050 ml Laboratory Data 24H LABS Laboratory Tests 2 05/15/21 13:31: Immature Granulocyte % (Auto) 0.3, Neutrophils (%) (Auto) 79.7H, Lymphocytes (%) (Auto) 12.8L, Monocytes (%) (Auto) 5.9, Eosinophils (%) (Auto) 0.8, Basophils (%) (Auto) 0.5, Neutrophils # (Auto) 11.8H, Lymphocytes # (Auto) 1.9, Monocytes # (Auto) 0.9H, Eosinophils # (Auto) 0.1, Basophils # (Auto) 0.1, Nucleated Red Blood Cells % (auto) 0.0, Total Bilirubin 0.7, Direct Bilirubin 0.2, Aspartate Amino Transf (AST/SGOT) 10, Alanine Aminotransferase (ALT/SGPT) 20, Alkaline Phosphatase 68, Total Protein 7.5, Albumin 4.3, Albumin/Globulin Ratio 1.3, Lipase 84 05/15/21 13:44: POC Beta HCG, Quantitative < 5.0 05/15/21 14:00: POC Glucose (Misc Panel) 92, POC Sodium (Misc Panel) 142, POC Potassium (Misc Panel) 3.8, POC Chloride (Misc Panel) 99, POC Total CO2 (Misc Panel) 27.0, POC Blood Urea Nitrogen (Misc Panel 5L, POC Ionized Calcium (Misc Panel) 4.6, POC Creatinine (Misc Panel) 0.6, POC Hematocrit (Misc Panel) 51.0 05/15/21 14:48: Erythrocyte Sedimentation Rate 3, Lactic Acid Level 1.1, C-Reactive Protein, Quantitative 0.70H 05/15/21 17:25: Coronavirus (COVID-19)(PCR) NEGATIVE, Influenza Type A (RT-PCR) NEGATIVE, Influenza Type B (RT-PCR) NEGATIVE, Respiratory Syncytial Virus (PCR) NEGATIVE, Methicillin-Resist S.aureus DNA PCR NOT DETECTED 05/16/21 05:39: CBC/BMP Laboratory Tests 05/15/21 13:31 Microbiology Microbiology 05/15/21 Blood Culture, Received Pending 05/15/21 Blood Culture, Received Pending RAYRAY FRIEDMAN M.D. May 16, 2021 06:26
[2021-05-16] MEDS: cefTRIAXone SOD 1 GM in D5W MINI-BAG PLUS 50 ML IV SCH (19:38)
[2021-05-16] MEDS: traMADol 50 MG TAB PO PRN (19:38)
[2021-05-16 22:00] VITALS: BP 121/80
[2021-05-16] MEDS ORDERED: RAMELTEON 8 MG TAB (ROZEREM) PO PRN (22:00)
[2021-05-16] MEDS ORDERED: MIRALAX *UNIT DOSE* 17GM PACKET PO PRN (22:00)
[2021-05-16] MEDS: DOCUSATE SODIUM 100MG CAPSULE PO SCH (22:20)
[2021-05-17] MEDS: metroNIDAZOLE 500 MG in IV 1 EA IV SCH ×2 (05:47→15:03)
[2021-05-17] MEDS: ACETAMINOPHEN TAB 650MG DOSE (2X325MG) PO PRN ×2 (05:47→15:03)
[2021-05-17 06:00] VITALS: BP_SYST 115; BP_SYST 131; BP_DIAS 60; BP_DIAS 64
[2021-05-17 06:13] LABS: HEMATOCRIT 43.8 % (36.0-47.0); HEMOGLOBIN 14.5 g/dl (12.0-15.5); MEAN CORPUSCULAR HEMOGLOBIN 30.9 pg (27.0-33.0); MEAN CORPUSCULAR HGB CONC 33.1 g/dl (32.0-36.5); MEAN CORPUSCULAR VOLUME 93.4 fl (80.0-96.0); PLATELET COUNT, AUTOMATED 329 10^3/uL (150-450); RED BLOOD COUNT 4.69 10^6/uL (4.00-5.40); WHITE BLOOD COUNT 8.9 10^3/uL (4.0-10.0)
[2021-05-17 06:42] LABS: BLOOD UREA NITROGEN 5 MG/DL (7-18); CALCIUM LEVEL 8.8 MG/DL (8.5-10.1); CARBON DIOXIDE LEVEL 30 MEQ/L (21-32); CHLORIDE LEVEL 109 MEQ/L (98-107); CREATININE FOR GFR 0.52 MG/DL (0.55-1.30); GLOMERULAR FILTRATION RATE > 60.0 (>60); GLUCOSE, FASTING 87 MG/DL (70-100); MAGNESIUM LEVEL 1.8 MG/DL (1.8-2.4); PHOSPHORUS LEVEL 3.3 MG/DL (2.5-4.9); POTASSIUM SERUM 4.4 MEQ/L (3.5-5.1); SODIUM LEVEL 142 MEQ/L (136-145)
[2021-05-17] MEDS: NICOTINE 14 MG/24 HR TRANSDERMAL TD SCH (08:40)
[2021-05-17] MEDS: ENOXAPARIN 40MG/0.4ML SYRINGE (J1650 PER 10MG) SC SCH (08:40)
[2021-05-17] MEDS: VENLAFAXINE **XR** 75MG CAPSULE PO SCH (08:40)
[2021-05-17] MEDS: DOCUSATE SODIUM 100MG CAPSULE PO SCH (08:40)
[2021-05-17] MEDS ORDERED: LACTOBACILLUS ACIDOPHILUS CAP (BACID) PO SCH (09:00)
[2021-05-17] MEDS: ONDANSETRON 4 MG TAB PO PRN (09:15)
[2021-05-17] MEDS: traMADol 50 MG TAB PO PRN (10:54)
[2021-05-17 14:00] VITALS: BP 114/62
--- NOTE | 2021-05-17 15:45 | IPNPDOC ---
Subjective Date Seen The patient was seen on 05/17/21. Subjective Chief Complaint/HPI Patient was seen and examined at bedside this morning. She feels that the swelling in her face has decreased and was asking to go home. She denies dysphagia, nausea, vomiting, palpitation, chest pain, abdominal pain, problems with urination or bowel movements. Objective Physical Examination Other physical findings General: Lying in bed, no acute distress Head/Neck/Throat: Trachea midline, mucous membranes moist Eyes: Sclera anicteric, no erythema or discharge appreciated bilaterally Thorax: Mild by lateral wheezes Cardiovascular: Normal rate, regular rhythm, normal S1, S2; no S3, S4, rubs/g allops/murmurs Abdomen: Bowel sounds present, soft/nontender/nondistended Genitourinary: No CVA tenderness, no Smith in place Musculoskeletal: Moving all extremities, no edema Skin: Right facial swelling has declined Neurologic: AAOx3, speech fluent and goal-directed, no focal deficits, grossly intact Assessment /Plan Assessment #Cellulitis -Continue with ceftriaxone and Flagyl for gram-negative and anaerobic coverage. -there is also rle cellulitis just above the knee, which should be covered with above regimen. -We will ask for assistance of infectious disease team for adequate oral regimen. #Chronic bronchitis -We will add as needed albuterol. #Anxiety/depression -Continue with ambulatory anxiety lytics. #GERD -Continue ambulatory ppi #DVT ppx -Continue with heparin subcu Plan/VTE VTE Prophylaxis Ordered?: Yes VS, I&O, 24H, Fishbone Vital Signs/I&O Vital Signs Date Time Temp Pulse Resp B/P (MAP) Pulse Ox O2 Delivery O2 Flow Rate FiO2 05/17/21 11:24 20 05/17/21 06:00 97.7 70 115/60 (78) 95 Room Air I&O- Last 24 Hours up to 6 AM 05/17/21 05:59 Intake Total 1850 ml Output Total 1250 ml Balance 600 ml Laboratory Data 24H LABS Laboratory Tests 2 05/17/21 05:44: Nucleated Red Blood Cells % (auto) 0.0, Anion Gap 3L, Glomerular Filtration Rate > 60.0, Calcium Level 8.8, Phosphorus Level 3.3, Magnesium Level 1.8 CBC/BMP Laboratory Tests 05/17/21 05:44 Microbiology Microbiology 05/15/21 Blood Culture - Preliminary, Resulted No growth after 24 hours . All specim... 05/15/21 Blood Culture - Preliminary, Resulted No growth after 24 hours . All specim... RAYRAY FRIEDMAN M.D. May 17, 2021 12:38
[2021-05-17] MEDS ORDERED: CEFD1CAP8 PO (17:16)
[2021-05-17] MEDS ORDERED: FLAG500T PO (17:16)
[2021-05-17] MEDS: PANTOPRAZOLE 40MG TAB (PROTONIX) PO SCH (17:17)
--- NOTE | 2021-05-17 17:23 | DS.PDOC ---
Discharge Summary General Date of Admission May 15, 2021 at 17:41 Date of Discharge 05/17/31 Discharge Summary PROCEDURES PERFORMED DURING STAY: [None]. DISCHARGE DIAGNOSES: 1. Facial cellulitis 2. Chronic bronchitis 3. Anxiety/depression 4. GERD COMPLICATIONS/CHIEF COMPLAINT: Cellulitis, Face. HOSPITAL COURSE: 35-year-old female presented with facial swelling. She was noted to have cellulitis of the face with underlying dental caries. She was placed on IV antibiotics (ceftriaxone, Flagyl, and vancomycin); Vancomycin was discontinued due to her being MRSA negative. She has significant improvement on IV antibiotics. She was evaluated by the infectious disease team and these were transitioned to oral antibiotics (cefuroxime and Flagyl) which she was instructed to complete as prescribed. She should follow-up with her primary care physician in 5 to 7 days and infectious disease doctor in 10 to 14 days DISCHARGE MEDICATIONS: Please see below. ALLERGIES: Please see below. PHYSICAL EXAMINATION ON DISCHARGE: General: Lying in bed, no acute distress Head/Neck/Throat: Trachea midline, mucous membranes moist Eyes: Sclera anicteric, no erythema or discharge appreciated bilaterally Thorax: Mild by lateral wheezes Cardiovascular: Normal rate, regular rhythm, normal S1, S2; no S3, S4, r ubs/gallops/murmurs Abdomen: Bowel sounds present, soft/nontender/nondistended Genitourinary: No CVA tenderness, no Smith in place Musculoskeletal: Moving all extremities, no edema Skin: Right facial swelling has declined Neurologic: AAOx3, speech fluent and goal-directed, no focal deficits, grossly intact LABORATORY DATA: Please see below. IMAGING: CT scan maxillofacial with contrast done on 05/15 Impression: 1. Prominent infiltration of subcutaneous fat in the left malar, maxillary, infraorbital, and nasal regions, consistent with cellulitis in the appropriate clinical setting. 2. Localized mucoperiosteal disease in the left maxillary sinus. PROGNOSIS: Good ACTIVITY: [As tolerated]. DIET: Regular diet Time for discharge 25 minutes. Vital Signs/I&Os Vital Signs Date Time Temp Pulse Resp B/P (MAP) Pulse Ox O2 Delivery O2 Flow Rate FiO2 05/17/21 14:00 98.0 77 19 114/62 (79) 99 Room Air I&O- Last 24 Hours up to 6 AM 05/17/21 06:00 Intake Total 1900 ml Output Total 1850 ml Balance 50 ml Laboratory Data Labs 24H Laboratory Tests 2 05/17/21 05:44: Nucleated Red Blood Cells % (auto) 0.0, Anion Gap 3L, Glomerular Filtration Rate > 60.0, Calcium Level 8.8, Phosphorus Level 3.3, Magnesium Level 1.8 CBC/BMP Laboratory Tests 05/17/21 05:44 Microbiology Microbiology 05/15/21 Blood Culture - Preliminary, Resulted No Growth after 48 hours. All Specime... 05/15/21 Blood Culture - Preliminary, Resulted No Growth after 48 hours. All Specime... Discharge Medications Scheduled Cefdinir (Cefdinir) 300 Mg Capsule, 300 MG PO BID Fluticasone Furoate (Arnuity Ellipta) 200 Mcg Blst.w.dev, 1 PUFF PO DAILY, (Reported) Lactobacillus Acidophilus (Probiotic) 1 Each Capsule, 1 CAP PO QPM, (Reported) Metronidazole (Flagyl) 500 Mg Tablet, 500 MG PO Q8H FOR 10 DAYS Multivitamins (Thera M Plus Tablet) 1 Tab Tab, 1 TAB PO QPM, (Reported) TAKES AT DINNERTIME Nicotine (Nicotine Patch) 14 Mg Patch.td24, 14 MG TD DAILY, (Reported) Pantoprazole Sodium (Protonix) 40 Mg Tab, 40 MG PO QPM, (Reported) Venlafaxine HCl (Venlafaxine HCl ER) 150 Mg Cap.er.24h, 150 MG PO DAILY, (Reported) [Viviscal Hair Vit] , 1 TAB PO BID, (Reported) Scheduled PRN Alprazolam (Alprazolam) 0.5 Mg Tablet, 0.5 MG PO BID PRN for ANXIETY, (Reported) Tramadol HCl (Tramadol HCl) 50 Mg Tablet, 1 TAB PO BID PRN for PAIN LEVEL 1-5, (Reported) Allergies Coded Allergies: Aida Nut (Verified Allergy, Intermediate, ITCHY THROAT, 02/08/21) Penicillins (Verified Allergy, Unknown, swelling, 02/08/21) latex (Verified Allergy, Unknown, swelling, 02/08/21) pineapple (Verified Adverse Reaction, Unknown, upset stomach, 02/08/21) RAYRAY FRIEDMAN M.D. May 17, 2021 17:23
[2021-05-17] MEDS ORDERED: ZOFR4TAB16 PO (18:15)
--- NOTE | 2021-05-18 09:44 | CR ---
CONSULTATION DATE: 05/17/2021 REASON FOR CONSULTATION: Left facial cellulitis HISTORY OF PRESENT ILLNESS: Archana is a 35-year-old female with a history of left upper tooth problems for which she had been seen by Dr. Wood, a dentist. She went to see him three days prior to her hospitalization with complaint of pain and swelling in her face. She had a root canal done about 10 years ago and then had an infection about 5 years ago when she was in [place] and it was thought she may have still problems that may need surgery down the line. The patient was doing well until about three days before admission when she developed swelling, pain and on the day of admission she had severe pain and cellulitis involving the whole left face with drooping of her eyelid. She had a low grade fever of 100.2. The clindamycin gave her severe nausea and vomiting; she could not tolerate it. The patient came to the hospital and was started on IV ceftriaxone and Flagyl; and in the past 48 hours, she has had significant improvement. PAST MEDICAL HISTORY: Significant for gastroesophageal reflux disease, fibromyalgia, [place] syndrome, anxiety and depression and root canal done on her left upper. PAST SURGICAL HISTORY: Breast surgery due to [place] syndrome, appendectomy, ablation for varicose vein. SOCIAL HISTORY: She lives at home. She is a smoker. She has a nicotine patch and is willing to quit. She denies alcohol or drug abuse. FAMILY HISTORY: Non-revealing. PHYSICAL EXAMINATION: She is a healthy looking female in no acute distress. Neck supple with no jugular venous distention (JVD), no carotid bruits, no adenopathy. Pupils equal and reactive, anicteric. Heart: Normal S1, S2. No murmurs, rubs or gallops. Lungs are clear. No wheezes, rales or rhonchi. Abdomen is soft, nontender, no hepatosplenomegaly. Extremities: No clubbing, cyanosis or edema. Skin: Left facial swelling, minimal, slightly tender to touch around the maxillary area with no drainage. Oropharynx is clear with no lesion. No tenderness around the upper teeth. A picture on her phone showed significant swelling and edema periorbital. MEDICATIONS: Probiotics one tablet by mouth daily, Rozerem 8 mg by mouth every night at bedtime, Miralax one packet daily, Colace 200 mg by mouth twice a day, Protonix 40 mg by mouth daily, tramadol 50 mg q 12 hours as needed, Effexor 150 mg daily, nicotine patch daily, Lovenox 40 mg subcutaneous daily, metronidazole 500 mg IV q 8 hours, ceftriaxone 1 gm IV q 24 hours, Zofran as needed. IMAGING DATA: CT maxillofacial showed no evidence of abscess, showed periorbital cellulitis, prominent subcutaneous fat with subcutaneous infiltration. Localized mucoperiosteal disease in the left maxillary sinus. IMPRESSION: 35-year-old with a history of tobacco abuse and root canal of the left upper tooth, who is admitted with periorbital cellulitis that has markedly improved after she received IV Rocephin and Flagyl. CT scan shows only periorbital swelling with some maxillary disease. The patient has clinically markedly improved. She could be discharged home on by mouth antibiotic. LABORATORY DATA: White count on admission was 14.9, today was 8.9, hemoglobin 14.5, hematocrit 43.8, platelets 329, erythrocyte sedimentation rate (ESR) 3. Sodium 142, potassium 4.4, chloride 109, bicarbonate 30, BUN 5, creatinine 0.52, glucose 87, calcium 8.8, phosphorus 3.3, magnesium 1.8, C-reactive protein 0.7. Blood cultures two sets are no growth after 48 hours. PLAN: Discharge the patient home on by mouth Flagyl plus metronidazole 500 mg every 8 hours for 10 days. The patient was advised that this may give her a metallic taste and some nausea. She also should be given as needed Zofran to be used as needed. Ceftriaxone IV should be discontinued and switched to cefdinir 300 mg by mouth twice a day for 10 days. She will follow up with her dental surgeon and she already has an appointment. She does not need infectious disease follow up.
== END 2021-05-17 18:20 | disposition home or self-care (01) | DRG 603 ==
LOC: M ED 10:24 → M ED INP 17:41 → M MSPAV 20:48
PROVIDERS: ADMIT Internal Medicine; ATTEND Internal Medicine
DX: L03.211 Cellulitis of face (principal); K21.9 Gastro-esophageal reflux disease without esophagitis; M79.7 Fibromyalgia; Q79.8 Other congenital malformations of musculoskeletal system; Z90.79 Acquired absence of other genital organ(s); Z87.891 Personal history of nicotine dependence; Z88.0 Allergy status to penicillin; F41.9 Anxiety disorder, unspecified; F32.9 Major depressive disorder, single episode, unspecified; Z79.899 Other long term (current) drug therapy; Z20.822 Contact with and (suspected) exposure to COVID-19; Z91.040 Latex allergy status; Z91.018 Allergy to other foods; J42 Unspecified chronic bronchitis

== ENCOUNTER → 2021-08-13 | Outpatient (CLI) | payer OTHER ==
[~2021-08-13] MED LIST changes: +ALPR0.5T3 PO; +ARNU1INH3 PO; +CEFD300C41 PO; +CLEO300C2 PO; +FLAG500T PO; +NICO14DI24 TD; +PROBCAP14 PO; +ZOFR4TAB16 PO; +[UNRECOGNIZED DRUG - OTHER] PO
== END ==
LOC: M WHC 15:57
PROVIDERS: ATTEND Surgery
DX: N63.20 Unspecified lump in the left breast, unspecified quadrant (principal)

== ENCOUNTER → 2021-08-22 | Outpatient (CLI) | payer OTHER ==
[~2021-08-22] MED LIST changes: +CEFD1CAP8 PO; -CEFD300C41 PO
--- NOTE | 2021-08-23 04:13 | REP ---
INDICATION: PALPABLE LYMPH NODE COMPARISON: None TECHNIQUE: Realtime grayscale ultrasound examination using linear high-frequency transducer. FINDINGS: Directed ultrasound examination of the left axillary region demonstrates multiple normal appearing lymph nodes. Largest nodes measure 15 x 5 x 21 mm and 12 x 5 x 26 mm. No pelvic fluid or pathologic mass lesion otherwise identified. IMPRESSION: Few normal mildly prominent sized lymph nodes. <Electronically signed by Sean Decker > 08/23/21 [id number]
== END ==
LOC: M WHC 14:22
PROVIDERS: ATTEND Surgery
DX: R59.9 Enlarged lymph nodes, unspecified (principal)

== ENCOUNTER → 2021-09-04 | Outpatient (REF) | payer OTHER ==
[2021-09-04 16:07] LABS: BASO # 0.1 10^3/uL (0.0-0.2); BASO % 0.9 % (0.0-1.0); EOS # 0.2 10^3/uL (0.0-0.5); EOS % 2.3 % (0.0-3.0); HEMATOCRIT 47.5 % (36.0-47.0); HEMOGLOBIN 15.4 g/dl (12.0-15.5); LYMPH # 2.5 10^3/uL (1.5-5.0); LYMPH % 28.5 % (24.0-44.0); MEAN CORPUSCULAR HGB CONC 32.4 g/dl (32.0-36.5); MEAN CORPUSCULAR VOLUME 95.6 fl (80.0-96.0); MONO # 0.5 10^3/uL (0.0-0.8); MONO % 6.3 % (2.0-8.0); NEUTROPHILS # 5.3 10^3/uL (1.5-8.5); NEUTROPHILS % 61.7 % (36.0-66.0); PLATELET COUNT, AUTOMATED 388 10^3/uL (150-450); RED BLOOD COUNT 4.97 10^6/uL (4.00-5.40); WHITE BLOOD COUNT 8.6 10^3/uL (4.0-10.0)
[2021-09-04 16:46] LABS: FREE T4 1.01 NG/DL (0.76-1.46); THYROID STIMULATING HORMONE 0.66 uIU/ML (0.358-3.740)
== END ==
LOC: M SFHCCLAY 10:23
PROVIDERS: ATTEND Family Medicine
DX: E04.1 Nontoxic single thyroid nodule (principal); R68.89 Other general symptoms and signs

== ENCOUNTER → 2021-09-17 | Outpatient (CLI) | payer OTHER ==
[~2021-09-17] MED LIST changes: +PROHANCE 279.3MG/ML 15ML VIAL As Ordered ONE; +PROHANCE 279.3MG/ML 5ML VIAL As Ordered ONE
--- NOTE | 2021-09-17 16:51 | REP ---
INDICATION: LT BREAST MASS, RUPTURED IMPLANT?. COMPARISON: MRI 12/22/2020. TECHNIQUE: Three Arlin MRI imaging was performed with a dedicated breast coil. Axial, coronal, and sagittal T1 and T2 weighted scans were obtained with and without fat saturation in the usual fashion. The study includes dynamically acquired post gadolinium-enhanced imaging with image subtraction. Maximum intensity projection and multi planar reformation imaging is included as well. This study is interpreted with the aid of ClearStreamD, an FDA approved computer aided detection (CAD) software program, on a dedicated breast MRI workstation. The gadolinium enhancement dose is 14 mL of intravenous ProHance. FINDINGS: Bilateral breast implants are again noted with no evidence of intracapsular or extracapsular rupture. Once again, mild fluid surrounds the left breast implant diffusely. This is similar to the prior study. There is a band of nonenhancing mobile fibrous tissue along the anterior inferior surface of the implant approximately 2.8 cm in length and 1 cm in thickness. This appears to have moved inferiorly from a location at the level of the nipple on the prior exam. There is new mild to moderate diffuse capsular enhancement and thickening. Once again there is mild scattered fibroglandular tissue present in the breast itself. There is mild background parenchymal enhancement. There is no suspicious enhancing mass or morphologic abnormality. There is no significant cystic change. There is no axillary adenopathy. IMPRESSION: BI-RADS category 2, benign bilateral breast MRI. Bilateral breast implants again noted with no evidence of intracapsular or extracapsular rupture. Once again there is mild fluid surrounding the left breast implant. There is new mild to moderate diffuse capsular enhancement and thickening. The findings are consistent with diffuse pawan-implant inflammation and/or infection. Once again there is a band of mobile nonenhancing fibrous tissue along the anterior aspect of the left breast implant, which has changed in position and is now located more inferiorly when compared to the prior study. There is no suspicious enhancing mass. <Electronically signed by Gregorio Hassan > 09/17/21 [id number]
== END ==
LOC: M RAD 13:39
PROVIDERS: ATTEND Surgery
DX: N63.20 Unspecified lump in the left breast, unspecified quadrant (principal); Z98.82 Breast implant status
CPT/HCPCS: A9576 ×2

== ENCOUNTER → 2021-11-19 | Outpatient (CLI) | payer OTHER ==
[~2021-11-19] MED LIST changes: -CEFD1CAP8 PO; +CEFD300C41 PO; -PROHANCE 279.3MG/ML 15ML VIAL As Ordered ONE; -PROHANCE 279.3MG/ML 5ML VIAL As Ordered ONE
== END ==
LOC: M RAD 13:18
PROVIDERS: ATTEND Otolaryngology
DX: E04.2 Nontoxic multinodular goiter (principal)

== ENCOUNTER → 2021-12-24 | Outpatient (CLI) | payer OTHER ==
[~2021-12-24] MED LIST changes: -ACET1TAB16; +ACET300T48
== END ==
LOC: M CLY 09:02
PROVIDERS: ATTEND Family Medicine
DX: Z01.818 Encounter for other preprocedural examination (principal)

== ENCOUNTER → 2021-12-24 | Outpatient (REF) | payer OTHER ==
[2021-12-24 11:38] LABS: HEMATOCRIT 40.7 % (36.0-47.0); HEMOGLOBIN 13.3 g/dl (12.0-15.5); MEAN CORPUSCULAR HEMOGLOBIN 30.6 pg (27.0-33.0); MEAN CORPUSCULAR HGB CONC 32.7 g/dl (32.0-36.5); MEAN CORPUSCULAR VOLUME 93.6 fl (80.0-96.0); PLATELET COUNT, AUTOMATED 401 10^3/uL (150-450); RED BLOOD COUNT 4.35 10^6/uL (4.00-5.40); WHITE BLOOD COUNT 9.2 10^3/uL (4.0-10.0)
[2021-12-24 12:04] LABS: BLOOD UREA NITROGEN 5 MG/DL (7-18); CALCIUM LEVEL 9.1 MG/DL (8.5-10.1); CARBON DIOXIDE LEVEL 35 MEQ/L (21-32); CHLORIDE LEVEL 106 MEQ/L (98-107); GLOMERULAR FILTRATION RATE > 60.0 (>60); GLUCOSE, FASTING 82 MG/DL (70-100); POTASSIUM SERUM 4.6 MEQ/L (3.5-5.1); SODIUM LEVEL 142 MEQ/L (136-145)
== END ==
LOC: M SFHCCLAY 08:54
PROVIDERS: ATTEND Family Medicine
DX: Z01.818 Encounter for other preprocedural examination (principal)

== ENCOUNTER → 2022-01-05 | Outpatient (CLI) | payer OTHER ==
[~2022-01-05] MED LIST changes: +ACET-839 PO; +ALBU8.5H INH; +EFFE150C2 PO; +EFFE75CA2 PO; +PANT40TA29 PO
== END ==
LOC: M LABSMTC 11:06
PROVIDERS: ATTEND Anesthesiology
DX: Z01.812 Encounter for preprocedural laboratory examination (principal); Z20.822 Contact with and (suspected) exposure to COVID-19

== ENCOUNTER 2022-01-10 07:36 | Observation (INO) | payer OTHER ==
[~2022-01-10] VITALS: Ht 172.7 cm; Wt 76.8 kg
[~2022-01-10 07:36] MED LIST changes: +LIDOCAINE 2% 100MG/5ML SDV (FOR ANES.) As Ordered ONE; +LR 1,000 ML IV ONE; +MIDAZOLAM INJ 2MG/2ML VIAL (J2250 PER 1MG) As Ordered ONE; +ONDANSETRON 4MG/2ML VIAL As Ordered ONE; +ROCURONIUM BROMIDE 50 MG/5 ML VIAL As Ordered ONE; +dexameTHASONE 4 MG/ML 1ML VIAL (J1100 PER 1MG) As Ordered ONE; +fentaNYL 250 MCG/5 ML INJECTION As Ordered ONE; +propofoL 200 MG/20 ML VIAL As Ordered ONE
[2022-01-10] MEDS ORDERED: INDOCYANINE GREEN 25MG VIAL (IC-GREEN) As Ordered ONE (08:30)
[2022-01-10] MEDS ORDERED: HEPARIN SOD (PORCINE) 5000UNITS/ML 1ML VIAL/SYRINGE SQ ONE (08:35)
[2022-01-10] MEDS ORDERED: CLINDAMYCIN 900 MG in IV 1 EA IV ONE (08:35)
[2022-01-10] MEDS ORDERED: GENTAMICIN SULF 80MG/2ML VIAL As Ordered ONE (08:54)
[2022-01-10] MEDS ORDERED: BUPIVACAINE LIPOSOME/PF 1.3% 20ML VIAL (13.3MG/ML)(EXPAREL) As Ordered ONE ×2 (08:54→09:45)
[2022-01-10] MEDS ORDERED: HYDROmorphone HCL 2MG/ML 1ML VIAL As Ordered ONE (10:04)
[2022-01-10] MEDS ORDERED: ePHEDrine SULFATE 25 MG/5 ML(5MG/ML) SYRINGE As Ordered ONE (10:15)
[2022-01-10] MEDS ORDERED: ROCURONIUM BROMIDE 50 MG/5 ML VIAL As Ordered ONE ×2 (10:32→11:56)
[2022-01-10] MEDS ORDERED: LIDOCAINE 2% 100MG/5ML SDV (FOR ANES.) As Ordered ONE (11:56)
[2022-01-10] MEDS ORDERED: SUGAMMADEX SODIUM 500 MG/5 ML VIAL (BRIDION) As Ordered ONE (14:18)
[2022-01-10] MEDS ORDERED: ONDANSETRON 4MG/2ML VIAL IV PRN ×2 (14:25→15:20)
[2022-01-10] MEDS ORDERED: MEPERIDINE INJ 25 MG/ML VIAL (J2175) As Ordered ONE (15:12)
[2022-01-10] MEDS ORDERED: LR 1,000 ML IV SCH (15:20)
[2022-01-10] MEDS ORDERED: fentaNYL 100 MCG/2 ML INJECTION IV PRN (15:20)
[2022-01-10] MEDS: MEPERIDINE INJ 25 MG/ML VIAL (J2175) IV PRN ×2 (15:22→15:27)
[2022-01-10] MEDS: oxyCODONE 5MG TAB PO PRN ×2 (15:25→16:02)
[2022-01-10] MEDS: MORPHINE 2 MG/ML 1ML VIAL IV PRN ×2 (16:41→20:49)
[2022-01-10] MEDS: traMADol 50 MG TAB PO PRN (16:41)
[2022-01-10 17:00] VITALS: BP 126/62
[2022-01-10] MEDS: LR 1,000 ML IV SCH (17:07)
[2022-01-10 17:30] VITALS: BP 123/63
[2022-01-10] MEDS: CLINDAMYCIN 900 MG in IV 1 EA IV SCH (18:19)
[2022-01-10 18:30] VITALS: BP 120/63
[2022-01-10] MEDS ORDERED: ALPRAZolam 0.5 MG TAB PO PRN (18:55)
[2022-01-10 19:30] VITALS: BP 120/67
[2022-01-10 20:30] VITALS: BP 121/71
[2022-01-10] MEDS: HEPARIN SOD (PORCINE) 5000UNITS/ML 1ML VIAL/SYRINGE SQ SCH (20:41)
[2022-01-10] MEDS ORDERED: LACTOBACILLUS ACIDOPHILUS CAP (BACID) PO SCH (21:00)
[2022-01-10 21:30] VITALS: BP 102/52
[2022-01-10] MEDS: ACETAMINOPHEN TAB 650MG DOSE (2X325MG) PO PRN (22:03)
[2022-01-11] MEDS: CLINDAMYCIN 900 MG in IV 1 EA IV SCH (01:33)
[2022-01-11] MEDS: MORPHINE 2 MG/ML 1ML VIAL IV PRN ×2 (01:36→06:48)
[2022-01-11 02:30] VITALS: BP 115/66
[2022-01-11] MEDS: LR 1,000 ML IV SCH (03:13)
[2022-01-11] MEDS: traMADol 50 MG TAB PO PRN ×2 (04:14→10:17)
[2022-01-11] MEDS: ACETAMINOPHEN TAB 650MG DOSE (2X325MG) PO PRN (05:03)
[2022-01-11] MEDS: HEPARIN SOD (PORCINE) 5000UNITS/ML 1ML VIAL/SYRINGE SQ SCH (05:04)
[2022-01-11 06:00] VITALS: BP 102/51
[2022-01-11] MEDS ORDERED: PANTOPRAZOLE 40MG TAB (PROTONIX) PO SCH (09:00)
[2022-01-11] MEDS ORDERED: VENLAFAXINE **XR** 75MG CAPSULE PO SCH ×2 (09:00)
[2022-01-11 10:00] VITALS: BP 111/59
[2022-01-11] MEDS ORDERED: OXYC1TAB23 PO (10:10)
== END 2022-01-11 13:10 | disposition home or self-care (01) ==
LOC: M SDC 07:36 → M MS5PR 07:37
PROVIDERS: ADMIT Surgery; ATTEND Surgery
DX: N63.20 Unspecified lump in the left breast, unspecified quadrant (principal); T85.44XA Capsular contracture of breast implant, initial encounter; Y81.2 Prosthetic and other implants, materials and accessory general- and plastic-surgery devices associated with adverse incidents; Z98.82 Breast implant status; Q79.8 Other congenital malformations of musculoskeletal system; N64.4 Mastodynia; N65.1 Disproportion of reconstructed breast; F41.9 Anxiety disorder, unspecified; M79.7 Fibromyalgia; J45.909 Unspecified asthma, uncomplicated; K21.9 Gastro-esophageal reflux disease without esophagitis; Q76.0 Spina bifida occulta; G47.30 Sleep apnea, unspecified; Z87.891 Personal history of nicotine dependence; Z79.899 Other long term (current) drug therapy; Z79.51 Long term (current) use of inhaled steroids; Z79.891 Long term (current) use of opiate analgesic; Z88.0 Allergy status to penicillin; Z88.6 Allergy status to analgesic agent; Z91.040 Latex allergy status; Z91.018 Allergy to other foods
CPT/HCPCS: 19120; 19328; 19380; 36415; 81025; 86850; 86900; 86901; 87070; 87075; 88108; 88300; 88302; 88305; 88307; 96365; 96372; 96375; 96376; C9290; J1100; J1170; J1580; J1644; J2175; J2250; J2270; J2405; J3010; Q9968

== ENCOUNTER → 2022-05-27 | Outpatient (CLI) | payer OTHER ==
[~2022-05-27] MED LIST changes: -LIDOCAINE 2% 100MG/5ML SDV (FOR ANES.) As Ordered ONE; -LR 1,000 ML IV ONE; -MIDAZOLAM INJ 2MG/2ML VIAL (J2250 PER 1MG) As Ordered ONE; -ONDANSETRON 4MG/2ML VIAL As Ordered ONE; +OXYC1TAB23 PO; -ROCURONIUM BROMIDE 50 MG/5 ML VIAL As Ordered ONE; -dexameTHASONE 4 MG/ML 1ML VIAL (J1100 PER 1MG) As Ordered ONE; -fentaNYL 250 MCG/5 ML INJECTION As Ordered ONE; -propofoL 200 MG/20 ML VIAL As Ordered ONE
== END ==
LOC: M RAD 14:25
PROVIDERS: ATTEND Otolaryngology
DX: E04.2 Nontoxic multinodular goiter (principal)

== ENCOUNTER → 2022-05-31 | Outpatient (REF) | payer OTHER | LOC: M PLALAB 11:49 | PROVIDERS: ATTEND Nurse Practitioner Family | DX: Z12.4 Encounter for screening for malignant neoplasm of cervix (principal) | CPT/HCPCS: 87624; G0123 ==

== ENCOUNTER → 2022-07-22 | Outpatient (REF) | payer OTHER | LOC: M SFHCCLAY 15:51 | PROVIDERS: ATTEND Physician Assistant | DX: J01.00 Acute maxillary sinusitis, unspecified (principal) ==

== ENCOUNTER → 2022-08-29 | Outpatient (CLI) | payer OTHER | LOC: M RAD 10:44 | PROVIDERS: ATTEND Nurse Practitioner Family | DX: R10.2 Pelvic and perineal pain (principal); N83.202 Unspecified ovarian cyst, left side; N85.4 Malposition of uterus ==

== ENCOUNTER → 2022-10-04 | Outpatient (REF) | payer OTHER | LOC: M PLALAB 10:31 | PROVIDERS: ATTEND Nurse Practitioner Family | DX: Z53.9 Procedure and treatment not carried out, unspecified reason (principal) ==

== ENCOUNTER → 2022-10-23 | Outpatient (REF) | LOC: M PLAIMG 15:56 | PROVIDERS: ATTEND Internal Medicine | DX: M54.50 Low back pain, unspecified (principal); M25.541 Pain in joints of right hand ==

== ENCOUNTER → 2022-11-13 | Outpatient (CLI) | payer OTHER | LOC: M WHC 09:07 | PROVIDERS: ATTEND Otolaryngology | DX: E04.2 Nontoxic multinodular goiter (principal) ==

== ENCOUNTER → 2022-12-31 | Outpatient (CLI) | payer OTHER | LOC: M WHC 07:33 | PROVIDERS: ATTEND Surgery | DX: N64.4 Mastodynia (principal) | CPT/HCPCS: 76641; 77066; G0279 ==

== ENCOUNTER → 2023-01-02 | Outpatient (CLI) | payer OTHER | LOC: M SOG 07:49 | PROVIDERS: ATTEND Physician Assistant | DX: M25.512 Pain in left shoulder (principal) ==

== ENCOUNTER → 2023-01-29 | Outpatient (CLI) | payer OTHER ==
[~2023-01-29] MED LIST changes: +ARNU1INH INH; +BUSP10TA PO; +INCA0.35 PO; +METH-1165 PO; +VENL225T32 PO
== END ==
LOC: M PAIN 08:00
PROVIDERS: ATTEND Anesthesiology
DX: R07.89 Other chest pain (principal); G89.29 Other chronic pain; D36.10 Benign neoplasm of peripheral nerves and autonomic nervous system, unspecified; G62.9 Polyneuropathy, unspecified; M79.7 Fibromyalgia; J45.909 Unspecified asthma, uncomplicated; K21.9 Gastro-esophageal reflux disease without esophagitis; G47.30 Sleep apnea, unspecified; F17.210 Nicotine dependence, cigarettes, uncomplicated; Z88.0 Allergy status to penicillin; Z88.6 Allergy status to analgesic agent; Z91.018 Allergy to other foods; Z91.040 Latex allergy status; Z79.51 Long term (current) use of inhaled steroids; Z79.899 Other long term (current) drug therapy

== ENCOUNTER → 2023-02-12 | Outpatient (RCR) | payer OTHER | LOC: M PT 01-22 09:05 | PROVIDERS: ATTEND Orthopaedic Surgery Hand Surgery | DX: M25.512 Pain in left shoulder (principal) ==

== ENCOUNTER → 2023-02-18 | Outpatient (CLI) | payer OTHER ==
[2023-02-18 16:43] LABS: HCG, SERUM QUALITATIVE NEGATIVE (NEGATIVE)
[2023-02-18 16:46] LABS: FOLLICLE STIMULATING HORMONE 12.2 mIU/ML; THYROID STIMULATING HORMONE 1.181 uIU/ML (0.55-4.78)
[2023-02-18 16:47] LABS: ESTRADIOL 106.3 PG/ML; LUTEINIZING HORMONE 6.3 mIU/ML; TESTOSTERONE 21 NG/DL (14-76)
== END ==
LOC: M PLALAB 13:07
PROVIDERS: ATTEND Obstetrics & Gynecology
DX: N91.1 Secondary amenorrhea (principal)

== ENCOUNTER 2023-03-10 08:30 | Outpatient (RCR) | payer OTHER | END 2023-03-14 | LOC: M PT 08:30 | PROVIDERS: ATTEND Orthopaedic Surgery Hand Surgery | DX: M25.512 Pain in left shoulder (principal) ==

== ENCOUNTER → 2023-05-27 | Outpatient (CLI) | payer OTHER | LOC: M RAD 10:02 | PROVIDERS: ATTEND Otolaryngology | DX: E04.2 Nontoxic multinodular goiter (principal) ==

== ENCOUNTER → 2023-09-03 | Outpatient (CLI) | payer OTHER ==
[~2023-09-03] MED LIST changes: +CEFD1CAP9 PO; -CEFD300C41 PO; -EFFE150C2 PO; +EFFE150C3 PO
== END ==
LOC: M CLY 11:40
PROVIDERS: ATTEND Nurse Practitioner Family
DX: J40 Bronchitis, not specified as acute or chronic (principal)

== ENCOUNTER → 2023-09-03 | Outpatient (CLI) | payer OTHER | LOC: M CLY 11:36 | PROVIDERS: ATTEND Nurse Practitioner Family | DX: Z53.9 Procedure and treatment not carried out, unspecified reason (principal) ==

== ENCOUNTER → 2023-11-11 | Outpatient (CLI) | payer OTHER ==
[2023-11-11 15:54] LABS: PROLACTIN 6.17 NG/ML; THYROID STIMULATING HORMONE 0.221 uIU/ML (0.55-4.78)
== END ==
LOC: M PLALAB 11:56
PROVIDERS: ATTEND Nurse Practitioner Women's Health
DX: N64.52 Nipple discharge (principal)

== ENCOUNTER → 2023-12-04 | Outpatient (REF) | payer OTHER ==
[2023-12-04 18:16] LABS: THYROXINE (T4) 11.6 UG/DL (4.5-10.9)
[2023-12-04 18:17] LABS: THYROID STIMULATING HORMONE 0.238 uIU/ML (0.55-4.78)
[2023-12-04 18:19] LABS: FREE THYROXINE INDEX 3.7 % (1.3-4.8); T UPTAKE 31.6 % (22.5-37.0); THYROGLOBULIN ANTIBODY < 15.0 U/ML (<60.0); THYROID PEROXIDASE ANTIBODY 46 U/ML (<60.0)
== END ==
LOC: M SFHCWAGY 17:19
PROVIDERS: ATTEND Obstetrics & Gynecology
DX: R79.89 Other specified abnormal findings of blood chemistry (principal)

== ENCOUNTER → 2024-01-09 | Outpatient (REF) | payer OTHER ==
[2024-01-09 18:08] LABS: THYROGLOBULIN ANTIBODY < 15.0 U/ML (<60.0); THYROID PEROXIDASE ANTIBODY 46 U/ML (<60.0); THYROID STIMULATING HORMONE 1.572 uIU/ML (0.55-4.78); THYROXINE (T4) 8.4 UG/DL (4.5-10.9)
[2024-01-09 18:09] LABS: FREE T4 0.91 NG/DL (0.89-1.76)
[2024-01-09 18:11] LABS: FREE THYROXINE INDEX 2.6 % (1.3-4.8); T UPTAKE 30.5 % (22.5-37.0)
== END ==
LOC: M SFHCCLAY 10:09
PROVIDERS: ATTEND Nurse Practitioner Family
DX: R79.89 Other specified abnormal findings of blood chemistry (principal)

== ENCOUNTER → 2024-04-09 | Outpatient (REF) | payer OTHER ==
[~2024-04-09] MED LIST changes: +ONDA-282 PO; -ONDA4TAB6 PO
[2024-04-09 12:50] LABS: Trichomonas vaginalis (AMP) NOT DETECTED (NEGATIVE)
[2024-04-09 13:13] LABS: GC DNA AMPLIFICATION NEGATIVE (NEGATIVE)
== END ==
LOC: M SFHCCLAY 10:57
PROVIDERS: ATTEND Physician Assistant
DX: N89.8 Other specified noninflammatory disorders of vagina (principal)

== ENCOUNTER → 2024-07-07 | Outpatient (REF) | payer OTHER ==
[~2024-07-07] MED LIST changes: +MULT-90 PO
[2024-07-07 18:45] LABS: THYROID PEROXIDASE ANTIBODY 30 U/ML (<60.0); THYROID STIMULATING HORMONE 0.617 uIU/ML (0.55-4.78); THYROXINE (T4) 9.1 UG/DL (4.5-10.9)
[2024-07-07 18:46] LABS: FREE THYROXINE INDEX 2.4 % (1.3-4.8); T UPTAKE 26.2 % (22.5-37.0)
[2024-07-07 18:51] LABS: THYROGLOBULIN ANTIBODY < 15.0 U/ML (<60.0)
== END ==
LOC: M SFHCCLAY 11:45
PROVIDERS: ATTEND Physician Assistant
DX: R79.89 Other specified abnormal findings of blood chemistry (principal)

== ENCOUNTER → 2025-05-06 | Outpatient (REF) | payer OTHER ==
[~2025-05-06] MED LIST changes: -PREG50CA PO; +PREG50CA87 PO; +VENL225T PO; -VENL225T32 PO
== END ==
LOC: M SFHCPLAZ 17:34
PROVIDERS: ATTEND Family Medicine
DX: Z53.9 Procedure and treatment not carried out, unspecified reason (principal); N76.0 Acute vaginitis

== ENCOUNTER → 2025-05-10 | Outpatient (REF) | payer OTHER ==
[2025-05-10 14:40] LABS: Trichomonas vaginalis (AMP) NOT DETECTED (NEGATIVE)
[2025-05-10 15:04] LABS: GC DNA AMPLIFICATION NEGATIVE (NEGATIVE)
[2025-05-12 11:12] LABS: Trichamonas vaginalis NOT DETECTED (NOT DETECTED)
== END ==
LOC: M SFHCPLAZ 11:06
PROVIDERS: ATTEND Family Medicine
DX: N76.0 Acute vaginitis (principal)

== ENCOUNTER → 2025-06-22 | Outpatient (REF) | payer OTHER ==
[2025-06-22 19:28] LABS: ALT/SGPT 13 U/L (7.0-40); AST/SGOT 13 U/L (<34); CALCIUM LEVEL 9.2 MG/DL (8.5-10.1); CARBON DIOXIDE LEVEL 31 MMOL/L (20-31); CHLORIDE LEVEL 106 MMOL/L (98-107); CHOLESTEROL LEVEL 213 MG/DL (<200); CHOLESTEROL RISK RATIO 5.20 (<5); CREATININE FOR GFR 0.69 MG/DL (0.55-1.30); GLOMERULAR FILTRATION RATE > 90.0 (>58); LDL CHOLESTEROL 127.5 MG/DL (<100); NON-HDL-C 172.1 MG/DL; POTASSIUM SERUM 4.5 MMOL/L (3.5-5.1); SODIUM LEVEL 142 MMOL/L (136-145); TRIGLYCERIDES LEVEL 223 MG/DL (<150)
[2025-06-22 19:31] LABS: BASO # 0.1 10^3/uL (0.0-0.2); BASO % 1.0 % (0.0-1.0); EOS # 0.3 10^3/uL (0.0-0.5); EOS % 2.7 % (0.0-3.0); LYMPH # 2.9 10^3/uL (1.5-5.0); LYMPH % 24.0 % (24.0-44.0); MONO # 0.8 10^3/uL (0.0-0.8); MONO % 6.7 % (2.0-8.0); NEUTROPHILS # 7.9 10^3/uL (1.5-8.5); NEUTROPHILS % 65.2 % (36.0-66.0); PLATELET COUNT, AUTOMATED 480 10^3/uL (150-450)
[2025-06-22 19:32] LABS: FREE T4 0.94 NG/DL (0.89-1.76)
[2025-06-22 19:58] LABS: ESTIMATED AVERAGE GLUCOSE 100.0 MG/DL (60-110)
[2025-06-22 20:02] LABS: HIV 1&2 SCREEN NEGATIVE (NEGATIVE)
[2025-06-22 20:09] LABS: HEPATITIS C VIRUS ABY INDEX 0.05 INDEX (<0.8)
== END ==
LOC: M SFHCCLAY 13:48
PROVIDERS: ATTEND Nurse Practitioner Family
DX: Z00.00 Encounter for general adult medical examination without abnormal findings (principal); R53.83 Other fatigue; F19.11 Other psychoactive substance abuse, in remission; Z11.4 Encounter for screening for human immunodeficiency virus [HIV]; Z11.59 Encounter for screening for other viral diseases; Z91.89 Other specified personal risk factors, not elsewhere classified